=== PATIENT | female | born 1975 | race Caucasian/White ===

== ENCOUNTER 2016-03-04 08:40 | Outpatient (CLI) | payer MEDICAID | END 2016-03-04 08:41 | disposition home or self-care (01) | DX: F42.9 Obsessive-compulsive disorder, unspecified (principal); F84.0 Autistic disorder; F79 Unspecified intellectual disabilities; F41.9 Anxiety disorder, unspecified; R45.1 Restlessness and agitation ==

== ENCOUNTER 2016-09-14 16:22 | Emergency (ER) | payer MEDICAID ==
--- NOTE | 2016-09-14 18:11 | XRAY Preliminary Report ---
Exam: XR Chest 1 View IMPRESSION: 1. Hypoventilatory changes. 2. No unexpected radiopaque foreign bodies. [facility] SITE ID: [id number]
--- NOTE | 2016-09-14 18:17 | XRAY Report ---
EXAM: CHEST RADIOGRAPHY EXAM DATE: 09/14/2016 05:41 PM. CLINICAL HISTORY: 2 teeth missing, ? aspirate. COMPARISON: None. TECHNIQUE: 1 view. FINDINGS: Lungs/Pleura: Decreased volumes with hazy densities at the bases. No consolidation, effusions or pneu mothorax. Mediastinum: Within exam limitations, cardiomediastinal contour is normal. Other: Study limited by body habitus. No radiopaque unexpected foreign bodies are noted. IMPRESSION: 1. Hypoventilatory changes. 2. No unexpected radiopaque foreign bodies. [facility] Referring Provider Line: [phone] SITE ID: [id number]
--- NOTE | 2016-09-14 18:29 | ED Physician Documentation ---
History of Present Illness - Stated complaint Stated Complaint: PULLED OUT TOOTH - Chief complaint Chief Complaint: Heent - Additonal information Additional information: hx from pt 40 f with DD and autism per caregivers was sliding down in her beds with her sheet in her mouth and pulled out two lower teeth and some others seem loose only one tooth could be found no cough or soa no other injury reported LMP August 20 Review of Systems Throat: reports: Dental pain / toothache : reports: LMP (August 20) PD PAST MEDICAL HISTORY - Past Medical History Past Medical History: Yes Endocrine/Autoimmune: HyPOthyroidism GI: GERD Other Past Medical History: autism - Past Surgical History Past Surgical History: Yes HEENT: Myringotomy (tubes) - Present Medications Home Medications: Ambulatory Orders Medication Instructions Recorded Confirmed Alprazolam [Xanax] 1.5 mg PO TID 09/08/12 09/08/12 Desmopressin Acetate 0.2 mg PO TID 09/08/12 09/08/12 Divalproex Sodium [Depakote] 500 mg PO TID 09/08/12 09/08/12 Levothyroxine [Synthroid] 100 mcg PO QDAC 09/08/12 09/08/12 Medroxyprogesterone Acetate 150 mg IM 09/08/12 09/08/12 [Depo-Provera] Oxybutynin [Ditropan] 5 mg PO BID 09/08/12 09/08/12 PARoxetine [Paxil] 40 mg PO DAILY 09/08/12 09/08/12 Quetiapine Fumarate [Seroquel] 200 mg PO QID 09/08/12 09/08/12 Ranitidine HCl [Zantac] 300 mg PO BID 09/08/12 09/08/12 Risperidone [Risperdal] 3 mg PO QDAC 09/08/12 09/08/12 Diphenhydramine HCl [Benadryl] 25 mg PO 04/11/13 04/11/13 Erythromycin Base [Erythromycin] 1 applic OP 5XD 7 Days 04/11/13 Ibuprofen 800 mg PO 04/11/13 04/11/13 Inulin [Fiber Gummies] 1 PO 04/11/13 04/11/13 Penicillin Vk 500 mg PO Q8H 7 Days 09/14/16 - Allergies Allergies/Adverse Reactions: Allergies Allergy/AdvReac Type Severity Reaction Status Date / Time No Known Drug Allergies Allergy Verified 09/25/15 17:42 - Social History Does the pt smoke?: No Smoking Status: Never smoker Does the pt drink ETOH?: No Does the pt have substance abuse?: No - POLST Patient has POLST: No PD ED PE NORMAL - Vitals Vital signs reviewed: Yes - General General: Alert and oriented X 3 - HEENT HEENT: Other (poor dental state, two lower lateral to incisors missing, left with a small stub of tooth left at gumline, old blood in mouth no active bleed, other three lower incisors are not able to be moved but there is some blood along the gum line, no tongue lac or lip lac) Results - Vitals Vitals: Vital Signs - 24 hr 09/14/16 16:28 Temperature 36.8 C Heart Rate 115 H Respiratory 18 Rate Blood Pressure 134/86 H O2 Saturation 98 Oxygen O2 Source Room air - Rads (name of study) CXR Radiology: See rad report (No FB) PD MEDICAL DECISION MAKING - ED course ED course: tooth that was homero has no root, cannot reimplant, suspect pulled out easily 2 /2 decay Departure - Departure Disposition: 01 Home, Self Care Clinical Impression: Avulsed tooth Qualifiers: Encounter type: initial encounter Qualified Code(s): S03.2XXA - Dislocation of tooth, initial encounter Condition: Good Instructions: ED Fx Tooth Prescriptions: Penicillin Vk 500 mg PO Q8H 7 Days Comments: Please see a dentist tomorrow And please get Toma's blood pressure rechecked
[2016-09-14 19:04] VITALS: BP 148/111
== END 2016-09-14 19:03 | disposition home or self-care (01) ==
LOC: ED 16:22
DX: S03.2XXA Dislocation of tooth, initial encounter (principal); X58.XXXA Exposure to other specified factors, initial encounter; F84.0 Autistic disorder
CPT/HCPCS: 71010; 99283

== ENCOUNTER 2016-09-22 11:12 | Outpatient (CLI) | payer MEDICAID ==
[2016-09-22 19:02] LABS: BASOPHILS % (AUTO) 0.8 %; EOSINOPHILS # (AUTO) 0.1 10^3/uL (0.0-0.7); HCT - HEMATOCRIT 42.9 % (37.0-47.0); HGB - HEMOGLOBIN 14.3 g/dL (12.0-16.0); LYMPHOCYTES # (AUTO) 2.1 10^3/uL (1.5-3.5); LYMPHOCYTES % (AUTO) 36.1 %; MEAN CORPUSCULAR HEMOGLOBIN 33.4 pg (27.0-31.0); MEAN CORPUSCULAR HGB CONC 33.5 g/dL (32.0-36.0); MEAN CORPUSCULAR VOLUME 99.7 fL (81.0-99.0); MEAN PLATELET VOLUME 6.9 fL (7.9-10.8); MONOCYTES # (AUTO) 0.4 10^3/uL (0.0-1.0); MONOCYTES % (AUTO) 6.9 %; NEUTROPHILS # (AUTO) 3.2 10^3/uL (1.5-6.6); NEUTROPHILS % (AUTO) 55.2 %; NUCLEATED RED BLOOD CELLS AUTO 0.1 /100WBC; RED CELL DISTRIBUTION WIDTH 14.5 % (12.0-15.0); UNCORRECTED WHITE BLOOD COUNT 5.7 x10^3/uL; WHITE BLOOD COUNT 5.7 x10^3/uL (4.8-10.8)
[2016-09-22 19:13] LABS: ALBUMIN/GLOBULIN RATIO 1.1 (1.0-2.2); BILIRUBIN,TOTAL 0.4 mg/dL (0.2-1.0); CALCIUM 8.9 mg/dL (8.5-10.3); POTASSIUM 4.1 mmol/L (3.5-5.0); TOTAL PROTEIN 7.5 g/dL (6.7-8.2)
[2016-09-22 19:48] LABS: THYROID STIMULATING HORMONE 2.99 uIU/mL (0.34-5.60)
== END 2016-09-22 11:13 | disposition home or self-care (01) ==
LOC: LAB.N 11:12
PROVIDERS: ATTEND Family Medicine
DX: R56.9 Unspecified convulsions (principal); E03.9 Hypothyroidism, unspecified
CPT/HCPCS: 36415; 80053; 84439; 84443; 85025

== ENCOUNTER 2017-02-17 08:55 | Emergency (ER) | payer MEDICAID ==
[2017-02-17] MEDS ORDERED: ACETAMINOPHEN 325 MG TABLET PO STA (09:15)
[2017-02-17] MEDS ORDERED: TETANUS/DIPHTHERIA/PERTUSSIS 0.5 ML SYRINGE IM ONE (09:15)
--- NOTE | 2017-02-17 09:30 | ED Physician Documentation ---
History of Present Illness - Stated complaint Stated Complaint: GLF/FACE INJ - Chief complaint Chief Complaint: Laceration - Additonal information Additional information: hx from caregiver 41 female autistic non verbal per caregiver was walking wrapped in a blanket and fell striking back of head on a piece of electronics no LOC behavior seems baseline no NV moving all ext large lac to posterior scalp Review of Systems Constitutional: denies: Fever Ears: denies: Drainage/discharge Nose: denies: Epistaxis GI: denies: Vomiting Musculoskeletal: denies: Neck pain Neurologic: reports: Head injury. denies: Focal weakness PD PAST MEDICAL HISTORY - Past Medical History Endocrine/Autoimmune: HyPOthyroidism GI: GERD Other Past Medical History: Severe autism, non verbal - Past Surgical History Past Surgical History: Yes HEENT: Myringotomy (tubes) - Present Medications Home Medications: Ambulatory Orders Medication Instructions Recorded Confirmed Alprazolam [Xanax] 1.5 mg PO TID PRN 09/08/12 02/17/17 Oxybutynin [Ditropan] 5 mg PO BID PRN 09/08/12 02/17/17 PARoxetine [Paxil] 60 mg PO DAILY 09/08/12 02/17/17 Quetiapine Fumarate [Seroquel] 200 mg PO QID 09/08/12 02/17/17 risperiDONE [Risperdal] 3 mg PO QDAC 09/08/12 02/17/17 Ibuprofen 800 mg PO PRN 04/11/13 04/11/13 Inulin [Fiber Gummies] 1 tab PO DAILY 04/11/13 02/17/17 - Allergies Allergies/Adverse Reactions: Allergies Allergy/AdvReac Type Severity Reaction Status Date / Time No Known Drug Allergies Allergy Verified 09/25/15 17:42 - Social History Does the pt smoke?: No Smoking Status: Never smoker Does the pt drink ETOH?: No Does the pt have substance abuse?: No - Immunizations Immunizations are current?: Yes - POLST Patient has POLST: No PD ED PE NORMAL - Vitals Vital signs reviewed: Yes (BP not accurate, pt is autistic and agitated) - General General: No: Alert and oriented X 3 (baseline per caregiver - non verbal, autistic, moans) - HEENT HEENT: PERRL. No: Atraumatic (large 5 cm lac posterior scalp, not down to galea , exp[lored to base no FB, no crepitus on palpation) - Neck Neck: No bony TTP (moving freely without apparent pain) - Cardiac Cardiac: RRR - Respiratory Respiratory: No respiratory distress, Clear bilaterally - Derm Derm: Normal color, Other (scalp lac) - Neuro Neuro: Other (moves all ext, awake, baseline per caregiver). No: Alert and oriented X 3 Eye Opening: Spontaneous Motor: Obeys Commands Verbal: Incomprehensible (but that is baseline) GCS Score: 12 Results - Vitals Vitals: Vital Signs - 24 hr 02/17/17 09:03 Temperature 36.1 C L Heart Rate 74 Respiratory 14 Rate Blood Pressure 160/140 H O2 Saturation 100 Oxygen O2 Source Room air Procedures - Laceration (location) scalp Length in cm: 5 Wound type: Curved Neurovascular status: Sensory intact, Motor intact Anesthesia: OTH (none needed) Wound Preparation: Irrigated copiously NS (by denture laboratory technician), Wound explored, To the base. No: FB identified Skin layer closure: [place] (6) Other: Patient tolerated well, No complications, Tetanus booster given Complexity: Simple PD MEDICAL DECISION MAKING - ED course ED course: attempted to get CTH and spine but pt cannot cooperate with same her autism greatly limits exam but per caregiver baseline mental status, was a GLF not from height, her spine is NT and she is freely moving her neck (came in POV, shaking her head wildly when i entered to room to examine her) without apparent pain and without subsequent neuro changes feel risk of conscious sedation not merited in this case rather grigsby to dc with HI precautions and caregivers to monitor d/w caregiver who agrees with this plan Departure - Departure Disposition: 01 Home, Self Care Clinical Impression: Head injury Qualifiers: Encounter type: initial encounter Qualified Code(s): S09.90XA - Unspecified injury of head, initial encounter Occipital scalp laceration Qualifiers: Encounter type: initial encounter Qualified Code(s): S01.01XA - Laceration without foreign body of scalp, initial encounter Fall Qualifiers: Encounter type: initial encounter Qualified Code(s): W19.XXXA - Unspecified fall, initial encounter Condition: Good Instructions: ED Head Injury Closed Sleep Mon, ED Laceration All Follow-Up: Vineet Nur MD [Primary Care Provider] - Comments: Please carefully read all of the head injury precautions. If Toma is worse in any way, please bring her back to the ER for a recheck Otherwise, recommend gently washing the laceration and applying antibiotic ointment once a day, suzanne out in 10 days (her PMD can probably do this for her), return to the ER for signs of infection such as redness, swelling, or pus drainage. Also Toma's tetanus was updated today - please make a note in your records and advise her PMD so the office can update her records as well
[2017-02-17 10:07] VITALS: BP 135/66
== END 2017-02-17 10:05 | disposition home or self-care (01) ==
LOC: ED 08:55
DX: S01.01XA Laceration without foreign body of scalp, initial encounter (principal); W01.198A Fall on same level from slipping, tripping and stumbling with subsequent striking against other object, initial encounter; Y93.01 Activity, walking, marching and hiking; Y92.019 Unspecified place in single-family (private) house as the place of occurrence of the external cause; F84.0 Autistic disorder; K21.9 Gastro-esophageal reflux disease without esophagitis; E03.9 Hypothyroidism, unspecified
CPT/HCPCS: 12032; 99283; A9270

== ENCOUNTER 2017-02-25 18:34 | Outpatient (CLI) | payer MEDICAID | END 2017-02-25 18:35 | disposition critical access hospital (66) | LOC: EMS 18:34 | PROVIDERS: ATTEND Surgery | DX: R46.89 Other symptoms and signs involving appearance and behavior (principal); S01.81XA Laceration without foreign body of other part of head, initial encounter | CPT/HCPCS: A0425; A0429 ==

== ENCOUNTER 2017-02-25 18:42 | Emergency (ER) | payer MEDICAID ==
[2017-02-25] MEDS ORDERED: hydrOXYzine PAMOATE 25 MG CAPSULE PO STA (19:04)
--- NOTE | 2017-02-25 19:07 | ED Physician Documentation ---
History of Present Illness - Stated complaint Stated Complaint: HEAD LAC/AGGRESSIVE - History obtained from History obtained from: EMS, Caregiver - History of Present Illness Timing: Other (41-year-old woman with autism, she is nonverbal and at times aggressive. She is maintained on psychiatric medications for same. I guess today she was more agitated than normal and ran her head into something. She is brought in by ambulance, she is a scrape on the forehead. The caregiver would also like the suzanne from 10 days ago removed.) Review of Systems Unable to obtain: Other (nonverbal) PD PAST MEDICAL HISTORY - Past Medical History Endocrine/Autoimmune: HyPOthyroidism GI: GERD - Past Surgical History Past Surgical History: Yes HEENT: Myringotomy (tubes) - Present Medications Home Medications: Ambulatory Orders Medication Instructions Recorded Confirmed Alprazolam [Xanax] 1.5 mg PO TID PRN 09/08/12 02/17/17 Oxybutynin [Ditropan] 5 mg PO BID PRN 09/08/12 02/17/17 PARoxetine [Paxil] 60 mg PO DAILY 09/08/12 02/17/17 Quetiapine Fumarate [Seroquel] 200 mg PO QID 09/08/12 02/17/17 risperiDONE [Risperdal] 3 mg PO QDAC 09/08/12 02/17/17 Ibuprofen 800 mg PO PRN 04/11/13 04/11/13 Inulin [Fiber Gummies] 1 tab PO DAILY 04/11/13 02/17/17 - Allergies Allergies/Adverse Reactions: Allergies Allergy/AdvReac Type Severity Reaction Status Date / Time No Known Drug Allergies Allergy Verified 09/25/15 17:42 - Social History Does the pt smoke?: No Smoking Status: Never smoker Does the pt drink ETOH?: No Does the pt have substance abuse?: No - Immunizations Immunizations are current?: Yes - POLST Patient has POLST: No PD ED PE NORMAL - Vitals Vital signs reviewed: Yes - General General: Other (She is alert and cooperative, she makes eye contact and follows simple commands. She is using sign language to communicate with a caregiver.) - HEENT HEENT: EOMI, Other (She has a dense right cataract, there is a little scrape on the forehead without underlying tenderness. There is a healing laceration to the occiput, suzanne were removed during examination.) - Neck Neck: Supple, no meningeal sign, No bony TTP - Cardiac Cardiac: RRR, No murmur - Respiratory Respiratory: No respiratory distress, Clear bilaterally - Abdomen Abdomen: Non tender - Neuro Eye Opening: Spontaneous Motor: Obeys Commands Verbal: Confused GCS Score: 14 Results - Vitals Vitals: Oxygen O2 Source Room air PD MEDICAL DECISION MAKING - ED course ED course: 41-year-old woman with autism has a report of increased agitation and a head injury today. The head injury is minor, just a scrape on the forehead. Per the caregiver she is back at her baseline now and she is given hydroxyzine which is her as needed when she is agitated. She is advised to call the prescriber on Monday for evaluation and potential adjustment of her psychiatric medications. Departure - Departure Disposition: 01 Home, Self Care Clinical Impression: Autism Forehead abrasion Qualifiers: Encounter type: initial encounter Qualified Code(s): S00.81XA - Abrasion of other part of head, initial encounter Condition: Good Record reviewed to determine appropriate education?: Yes Comments: She received an oral dose of hydroxyzine, 25 mg in the emergency department tonight. The wounds about her head can be washed simply with soap and water, no other specific care is necessary. Whomever is prescribing her psychiatric medication should be contacted on Monday for evaluation and potential adjustment. Return anytime if worse.
== END 2017-02-25 19:24 | disposition home or self-care (01) ==
LOC: EDBD → EDUNIT# → ED 18:42
DX: F84.0 Autistic disorder (principal); S00.81XA Abrasion of other part of head, initial encounter; W22.09XA Striking against other stationary object, initial encounter; E03.9 Hypothyroidism, unspecified
CPT/HCPCS: 99283; A9270

== ENCOUNTER 2017-03-26 16:57 | Outpatient (CLI) | payer MEDICARE, MEDICAID | END 2017-03-26 16:58 | disposition critical access hospital (66) | LOC: EMS 16:57 | PROVIDERS: ATTEND Surgery | DX: R46.89 Other symptoms and signs involving appearance and behavior (principal) | CPT/HCPCS: A0425; A0429 ==

== ENCOUNTER 2017-03-26 17:06 | Emergency (ER) | payer MEDICARE, MEDICAID ==
[2017-03-26] MEDS ORDERED: QUEtiapine 100 MG TABLET PO STA ×2 (17:14→19:01)
--- NOTE | 2017-03-26 17:16 | ED Physician Documentation ---
History of Present Illness - Stated complaint Stated Complaint: agressive behavior - History obtained from History obtained from: EMS - History of Present Illness Timing: Other (41-year-old woman comes from an adult family home. She has a developmental delay and negative she has been more aggressive than normal lately. Today they were out shopping and she had a fit and through self to the ground and scraped her forehead. No other injuries.) Review of Systems Unable to obtain: Other (dev delay) PD PAST MEDICAL HISTORY - Past Medical History Endocrine/Autoimmune: HyPOthyroidism GI: GERD - Past Surgical History Past Surgical History: Yes HEENT: Myringotomy (tubes) - Present Medications Home Medications: Ambulatory Orders Medication Instructions Recorded Confirmed Alprazolam [Xanax] 1.5 mg PO TID PRN 09/08/12 02/17/17 Oxybutynin [Ditropan] 5 mg PO BID PRN 09/08/12 02/17/17 PARoxetine [Paxil] 40 mg PO DAILY 09/08/12 02/17/17 Quetiapine Fumarate [Seroquel] 200 mg PO QID 09/08/12 02/17/17 risperiDONE [Risperdal] 2 mg PO QDAC 09/08/12 02/17/17 Ibuprofen 800 mg PO PRN 04/11/13 04/11/13 Inulin [Fiber Gummies] 1 tab PO DAILY 04/11/13 02/17/17 Divalproex Sodium 03/26/17 Furosemide 20 mg PO 03/26/17 Levothyroxine Sodium [Synthroid] 03/26/17 Quetiapine Fumarate [Seroquel] 50 mg PO Q4H PRN #30 tablet 03/26/17 Quetiapine Fumarate [Seroquel] 400 mg PO BID #60 tablet 03/26/17 diphenhydrAMINE [Benadryl] 25 mg PO Q4-6H PRN #30 capsule 03/26/17 - Allergies Allergies/Adverse Reactions: Allergies Allergy/AdvReac Type Severity Reaction Status Date / Time No Known Drug Allergies Allergy Verified 09/25/15 17:42 - Social History Does the pt smoke?: No Smoking Status: Never smoker Does the pt drink ETOH?: No Does the pt have substance abuse?: No - Immunizations Immunizations are current?: Yes - POLST Patient has POLST: No PD ED PE NORMAL - Vitals Vital signs reviewed: Yes - General General: Other (She is alert and cooperative, follows simple commands. She gestures a lot with her hands.) - HEENT HEENT: Other (She is an abrasion over the forehead, the right eye lens is opacified which is similar to prior.) - Neck Neck: Supple, no meningeal sign, No bony TTP - Extremities Extremities: No deformity, No tenderness to palpate, Normal ROM s pain, No edema , No calf tenderness / cord - Neuro Neuro: No motor deficit, No sensory deficit, Other (Mostly grunts and gestures at things) Eye Opening: Spontaneous Motor: Obeys Commands Verbal: Incomprehensible GCS Score: 12 Results - Vitals Vitals: Vital Signs - 24 hr 03/26/17 17:08 Temperature 36.1 C L Heart Rate 67 Respiratory 18 Rate Blood Pressure 120/70 O2 Saturation 95 Oxygen O2 Source Room air - Labs Labs: Laboratory Tests 03/26/17 03/26/17 03/26/17 17:56 17:56 17:56 WBC 6.1 RBC 3.98 L Hgb 13.1 Hct 38.5 MCV 96.7 MCH 33.0 H MCHC 34.1 RDW 14.1 Plt Count 160 MPV 7.4 L Neut # 3.6 Lymph # 1.9 Gila # 0.5 Eos # 0.0 Baso # 0.0 Absolute Nucleated RBC 0.00 Nucleated RBC % 0.0 Sodium 138 Potassium 3.6 Chloride 103 Carbon Dioxide 24 Anion Gap 11.0 BUN 22 H Creatinine 0.9 Estimated GFR (MDRD) 69 L Glucose 91 Calcium 8.9 Total Bilirubin 0.6 AST 23 ALT 27 Alkaline Phosphatase 91 Total Protein 7.3 Albumin 3.6 Globulin 3.7 Albumin/Globulin Ratio 1.0 Lipase 26 TSH 1.81 PD MEDICAL DECISION MAKING - ED course ED course: Autism and developmental delay presents with increased agitation without clear cause. She was administered her usual dose of Seroquel and Ativan here without much change. I spoke with Dr. Luis A Lennon a psychiatrist in the [facility] who recommended Seroquel, 400 mg now and then tomorrow increasing her dose to 400 mg twice a day with a 50 mill grams dose as needed for agitation. The caregiver also felt the Benadryl has worked well for her in the past and this was given as well. Departure - Departure Disposition: 01 Home, Self Care Clinical Impression: Autism, Agitation Condition: Good Record reviewed to determine appropriate education?: Yes Prescriptions: diphenhydrAMINE [Benadryl] 25 mg PO Q4-6H PRN #30 capsule PRN Reason: Agitation Quetiapine Fumarate [Seroquel] 50 mg PO Q4H PRN #30 tablet PRN Reason: Agitation Quetiapine Fumarate [Seroquel] 400 mg PO BID #60 tablet Comments: Dr. Lennon at the [facility] recommends the following medication changes: Increasing her Seroquel to 400 mg twice a day, and then an as needed dose for agitation and 50 mg each time. You can also use Benadryl as needed for agitation, both prescriptions are attached. She should follow-up with nurse practitioner Chauncey at the [facility] as soon as possible. Return if worse.
[2017-03-26] MEDS ORDERED: LORazepam 0.5 MG TABLET PO STA (17:27)
[2017-03-26 17:33] VITALS: BP 120/70
[2017-03-26 18:09] LABS: BASOPHILS % (AUTO) 0.5 %; EOSINOPHILS % (AUTO) 0.6 %; HGB - HEMOGLOBIN 13.1 g/dL (12.0-16.0); LYMPHOCYTES # (AUTO) 1.9 10^3/uL (1.5-3.5); LYMPHOCYTES % (AUTO) 31.5 %; MEAN CORPUSCULAR HGB CONC 34.1 g/dL (32.0-36.0); MEAN CORPUSCULAR VOLUME 96.7 fL (81.0-99.0); MEAN PLATELET VOLUME 7.4 fL (7.9-10.8); MONOCYTES # (AUTO) 0.5 10^3/uL (0.0-1.0); NEUTROPHILS # (AUTO) 3.6 10^3/uL (1.5-6.6); NEUTROPHILS % (AUTO) 59.4 %; PLT - PLATELET COUNT 160 10^3/uL (130-450); RED BLOOD COUNT 3.98 10^6/uL (4.20-5.40); RED CELL DISTRIBUTION WIDTH 14.1 % (12.0-15.0); WHITE BLOOD COUNT 6.1 x10^3/uL (4.8-10.8)
[2017-03-26 18:18] LABS: ALBUMIN 3.6 g/dL (3.2-5.5); BILIRUBIN,TOTAL 0.6 mg/dL (0.2-1.0); CALCIUM 8.9 mg/dL (8.5-10.3); CREATININE 0.9 mg/dL (0.4-1.0); TOTAL PROTEIN 7.3 g/dL (6.7-8.2)
[2017-03-26] MEDS ORDERED: diphenhydrAMINE 25 MG CAPSULE PO STA (19:04)
== END 2017-03-26 19:17 | disposition home or self-care (01) ==
LOC: ED 17:06
DX: F84.0 Autistic disorder (principal); R45.1 Restlessness and agitation; S00.81XA Abrasion of other part of head, initial encounter; W22.09XA Striking against other stationary object, initial encounter; E03.9 Hypothyroidism, unspecified
CPT/HCPCS: 36415; 80053; 83690; 84443; 85025; 99283; A9270

== ENCOUNTER 2017-04-07 10:29 | Outpatient (CLI) | payer MEDICARE, MEDICAID | END 2017-04-07 10:30 | disposition critical access hospital (66) | LOC: EMS 10:29 | PROVIDERS: ATTEND Surgery | DX: S01.81XA Laceration without foreign body of other part of head, initial encounter (principal); W22.8XXA Striking against or struck by other objects, initial encounter; X83.8XXA Intentional self-harm by other specified means, initial encounter; Y92.039 Unspecified place in apartment as the place of occurrence of the external cause | CPT/HCPCS: A0425; A0429 ==

== ENCOUNTER 2017-04-07 10:40 | Emergency (ER) | payer MEDICARE, MEDICAID ==
[2017-04-07] MEDS ORDERED: OLANZapine 10 MG VIAL IM STA ×2 (11:42→12:38)
--- NOTE | 2017-04-07 11:46 | ED Physician Documentation ---
PD HPI HEAD INJURY - Stated complaint Stated Complaint: HEAD WOUND - Chief complaint Chief Complaint: Trauma Hd/Nk - History obtained from History obtained from: Family (Mother), EMS, Caregiver - History of Present Illness Mechanism of head injury: Blow Where head injury occurred: Home Timing - onset: Today Location of injury: Front Associated symptoms: No: LOC - Additional information Additional information: The patient is an autistic female who arrives via ambulance with frontal head injury. She is nonverbal and not able to provide history, but history is obtained from her caregiver and her mother. This morning the patient was banging her head on the floor, and put her jeans in her mouth and pulled, and the caregiver noticed blood from her mouth. There was no loss of consciousness. Vaccinations are up-to-date. Mother states that the head- banging has been increasing in frequency recently. Review of Systems Unable to obtain: Other (Nonverbal due to autism.) Constitutional: denies: Fever Respiratory: denies: Cough GI: denies: Vomiting, Diarrhea Neurologic: reports: Head injury. denies: LOC PD PAST MEDICAL HISTORY - Past Medical History Cardiovascular: None Respiratory: None Neuro: Other (Nonverbal autism) Endocrine/Autoimmune: HyPOthyroidism GI: GERD - Past Surgical History Past Surgical History: Yes HEENT: Myringotomy (tubes) - Present Medications Home Medications: Ambulatory Orders Medication Instructions Recorded Confirmed Alprazolam [Xanax] 1.5 mg PO TID PRN 09/08/12 04/07/17 Oxybutynin [Ditropan] 5 mg PO BID PRN 09/08/12 04/07/17 PARoxetine [Paxil] 40 mg PO DAILY 09/08/12 04/07/17 risperiDONE [Risperdal] 3 mg PO QDAC 09/08/12 04/07/17 Ibuprofen 800 mg PO TID 04/11/13 04/07/17 Inulin [Fiber Gummies] 1 tab PO DAILY 04/11/13 04/07/17 Divalproex Sodium 1 tab PO TID 03/26/17 04/07/17 Furosemide 20 mg PO DAILY PRN 03/26/17 04/07/17 Levothyroxine Sodium [Synthroid] 112 mcg PO DAILY 03/26/17 04/07/17 diphenhydrAMINE [Benadryl] 25 mg PO Q4-6H PRN #30 capsule 03/26/17 04/07/17 Cetirizine HCl 1 tab PO DAILY 04/07/17 04/07/17 Quetiapine Fumarate [Seroquel] 300 mg PO BID 04/07/17 04/07/17 raNITIdine [Zantac] 2 tab PO DAILY 04/07/17 04/07/17 - Allergies Allergies/Adverse Reactions: Allergies Allergy/AdvReac Type Severity Reaction Status Date / Time No Known Drug Allergies Allergy Verified 09/25/15 17:42 - Living Situation Living Situation: reports: With caregiver(s) Living Arrangement: reports: senior care - Social History Does the pt smoke?: No Smoking Status: Never smoker Does the pt drink ETOH?: No Does the pt have substance abuse?: No - Immunizations Immunizations are current?: Yes - POLST Patient has POLST: No PD ED PE NORMAL - Vitals Vital signs reviewed: Yes (hypertensive) - General General: Well developed/nourished, Other (Alert, repeated yelling vocalizations , without words.) - HEENT HEENT: PERRL, EOMI, Pharynx benign, Other (There is a 3 cm diameter area of contusion/abrasion in the mid forehead. There is a superficial abrasion, without laceration. No bony step-off is palpated. Examination of her teeth reveals a decayed left lower lateral incisor, fractured at the base. Teeth are otherwise intact.) - Neck Neck: No bony TTP - Cardiac Cardiac: RRR - Respiratory Respiratory: No respiratory distress, Clear bilaterally - Abdomen Abdomen: Soft, Non tender - Back Back: No spinal TTP - Derm Derm: No rash - Extremities Extremities: No tenderness to palpate, No edema - Neuro Neuro: No motor deficit Eye Opening: Spontaneous Motor: Obeys Commands Verbal: Confused GCS Score: 14 Results - Vitals Vitals: Oxygen O2 Source Room air - Rads (name of study) Head CT Radiology: Prelim report reviewed, EMP read contemporaneously, See rad report ( Normal head CT.) PD MEDICAL DECISION MAKING - ED course Complexity details: reviewed results, re-evaluated patient, considered differential, d/w patient, d/w family ED course: The patient's presentation is significant for forehead contusion and abrasion secondary to banging her head on the floor. Given her inability to communicate verbally it was felt clinically indicated that a head CT be performed to evaluate for the possibility of intracranial injury. Because of the patient's constant movement and vocal outbursts, sedation was required for the imaging study. Lorazepam 2 mg is administered IM. This had little impact on the patient's activity level. Zyprexa 5 mg was administered IM again with little impact. Subsequently, ketamine 300 mg was administered IM with good effect. Head CT was obtained, and it reveals no radiographic intracranial abnormality. Treatment in the emergency department included application of antibiotic ointment to the forehead abrasions. I discussed with the patient's caregiver and her mother the results of the CT scan, appropriate wound care, outpatient follow-up, as well as potentially worrisome signs or symptoms that should prompt reevaluation in the emergency department. Departure - Departure Disposition: 01 Home, Self Care Clinical Impression: Autism Forehead contusion Qualifiers: Encounter type: initial encounter Qualified Code(s): S00.83XA - Contusion of other part of head, initial encounter Forehead abrasion Qualifiers: Encounter type: initial encounter Qualified Code(s): S00.81XA - Abrasion of other part of head, initial encounter Condition: Stable Instructions: ED Wound Care Follow-Up: Vineet Nur MD [Primary Care Provider] - Comments: Continue medication as currently prescribed. Apply antibiotic ointment to the forehead wounds twice daily for the next 4 days. Follow up in the autism clinic as planned. Return to the emergency department if increasing headache, any sign of infection , or otherwise worsening symptoms. Discharge Date/Time: 04/07/17 15:33
[2017-04-07] MEDS ORDERED: LORazepam 2 MG/ML VIAL IM STA (12:13)
[2017-04-07] MEDS ORDERED: WATER FOR INJECTION,STERILE 10 ML ONE (12:47)
[2017-04-07] MEDS ORDERED: OLANZapine 10 MG VIAL IM ONE (12:47)
[2017-04-07] MEDS ORDERED: KETAMINE 500 MG/10 ML VIAL IM STA (13:21)
[2017-04-07 14:38] VITALS: BP 128/90
--- NOTE | 2017-04-07 14:41 | CT Preliminary Report ---
Exam: CT HEAD W/O IMPRESSION: Normal head CT. [facility] SITE ID: [id number]
--- NOTE | 2017-04-07 14:54 | CT Report ---
EXAM: CT HEAD EXAM DATE: 04/07/2017 02:13 PM. CLINICAL HISTORY: Autism. Hitting head against floor with forehead abrasion, laceration along superio r aspect of the head as well. COMPARISON: None. TECHNIQUE: Multiaxial CT images were obtained from the foramen magnum to the vertex. Reformats: Coron al. IV contrast: None. In accordance with CT protocol optimization, one or more of the following dose reduction techniques w ere utilized for this exam: automated exposure control, adjustment of mA and/or KV based on patient s ize, or use of iterative reconstructive technique. FINDINGS: Parenchyma: No intraparenchymal hemorrhage. No evidence of mass, midline shift, or CT findings of inf arction. Silva-white differentiation is distinct. Extraaxial Spaces: Normal for age. No subdural or epidural collections identified. Ventricles: Normal in size and position. Sinuses and Orbits: Imaged paranasal sinuses, orbits, and mastoids show no significant abnormality. Bones: No evidence of fracture or calvarial defect. Other: Mild forehead edema. No hematoma. IMPRESSION: Normal head CT. [facility] Referring Provider Line: [phone] SITE ID: [id number]
[2017-04-07] MEDS ORDERED: BACITRACIN OINT TOP STA (15:17)
== END 2017-04-07 15:33 | disposition home or self-care (01) ==
LOC: EDUNIT# → ED 10:40
DX: S00.83XA Contusion of other part of head, initial encounter (principal); W22.8XXA Striking against or struck by other objects, initial encounter; Y92.009 Unspecified place in unspecified non-institutional (private) residence as the place of occurrence of the external cause; S00.81XA Abrasion of other part of head, initial encounter; F84.0 Autistic disorder
CPT/HCPCS: 70450; 96372; 99283; 99284; A9270; J2060

== ENCOUNTER 2017-05-19 08:34 | Outpatient (CLI) | payer MEDICARE, MEDICAID ==
[2017-05-19 12:52] LABS: BASOPHILS % (AUTO) 0.8 %; EOSINOPHILS % (AUTO) 1.1 %; HGB - HEMOGLOBIN 14.4 g/dL (12.0-16.0); LYMPHOCYTES # (AUTO) 1.5 10^3/uL (1.5-3.5); LYMPHOCYTES % (AUTO) 41.1 %; MEAN CORPUSCULAR HEMOGLOBIN 32.7 pg (27.0-31.0); MEAN CORPUSCULAR HGB CONC 33.1 g/dL (32.0-36.0); MEAN CORPUSCULAR VOLUME 98.7 fL (81.0-99.0); MEAN PLATELET VOLUME 7.4 fL (7.9-10.8); MONOCYTES # (AUTO) 0.3 10^3/uL (0.0-1.0); MONOCYTES % (AUTO) 7.8 %; NEUTROPHILS # (AUTO) 1.8 10^3/uL (1.5-6.6); NEUTROPHILS % (AUTO) 49.2 %; PLT - PLATELET COUNT 164 10^3/uL (130-450); RED CELL DISTRIBUTION WIDTH 14.9 % (12.0-15.0); WHITE BLOOD COUNT 3.7 x10^3/uL (4.8-10.8)
[2017-05-19 13:14] LABS: HB2 TOTAL 15.4 g/dL; HEMOGLOBIN A1C 0.46 g/dL; HEMOGLOBIN A1C % 4.9 % (4.6-6.2)
[2017-05-19 13:17] LABS: ALBUMIN 3.6 g/dL (3.2-5.5); ALBUMIN/GLOBULIN RATIO 1.1 (1.0-2.2); ALKALINE PHOSPHATASE 69 IU/L (42-121); ALT ALANINE AMINOTRANSFERASE 27 IU/L (10-60); AST ASPARTATE AMINOTRANSFERASE 20 IU/L (10-42); BILIRUBIN,TOTAL 0.6 mg/dL (0.2-1.0); BUN - BLOOD UREA NITROGEN 21 mg/dL (6-20); CALCIUM 8.8 mg/dL (8.5-10.3); CARBON DIOXIDE - CO2 25 mmol/L (21-32); CHLORIDE 104 mmol/L (101-111); CHOL/HDL RATIO 3.7 (<4.4); CHOLESTEROL 187 mg/dL; CREATININE 0.8 mg/dL (0.4-1.0); GFR - MDRD 79 (>89); GLUCOSE 94 mg/dL (70-100); HDL CHOLESTEROL 51 mg/dL; LDL CHOLESTEROL,CALCULATED 115 mg/dL; LDL/HDL RATIO 2.3 (<4.4); SODIUM 135 mmol/L (135-145); VALPROIC ACID (DEPAKOTE) 62.6 ug/mL; VLDL CHOLESTEROL 21 mg/dL
[2017-05-19 13:20] LABS: THYROID STIMULATING HORMONE 2.57 uIU/mL (0.34-5.60)
[2017-05-19 13:22] LABS: FREE T4 (FREE THYROXINE) 0.74 ng/dL (0.58-1.64)
== END 2017-05-19 08:35 | disposition home or self-care (01) ==
LOC: LAB.N 08:34
PROVIDERS: ATTEND Family Medicine
DX: R56.9 Unspecified convulsions (principal); E11.9 Type 2 diabetes mellitus without complications; E66.01 Morbid (severe) obesity due to excess calories; E03.9 Hypothyroidism, unspecified; F84.0 Autistic disorder
CPT/HCPCS: 36415; 80053; 80061; 80164; 83036; 83721; 84439; 84443; 85025

== ENCOUNTER 2017-06-12 12:22 | Outpatient (CLI) | payer MEDICARE, MEDICAID | END 2017-06-12 12:23 | disposition critical access hospital (66) | LOC: EMS 12:22 | PROVIDERS: ATTEND Surgery | DX: F91.8 Other conduct disorders (principal) | CPT/HCPCS: A0425; A0429 ==

== ENCOUNTER 2017-06-12 12:33 | Emergency (ER) | payer MEDICARE, MEDICAID ==
[2017-06-12 12:53] VITALS: BP 92/73
--- NOTE | 2017-06-12 13:29 | ED Physician Documentation ---
History of Present Illness - Stated complaint Stated Complaint: AGITATED - Chief complaint Chief Complaint: General - History obtained from History obtained from: Caregiver - Additonal information Additional information: Nonverbal 41-year-old autistic female has had increased aggressive behavior today. She has had some things out of her routine and this is suspected to be a cause for this she is brought here today for evaluation of other causes. She has had some problem with the tooth in the lower jaw and has not been into see the dentist for this yet. Review of Systems Constitutional: denies: Fever Eyes: denies: Decreased vision Ears: denies: Ear pain Nose: reports: Congestion Throat: reports: Dental pain / toothache Respiratory: denies: Cough GI: denies: Vomiting Skin: denies: Rash Neurologic: denies: Generalized weakness, Focal weakness, Numbness PD PAST MEDICAL HISTORY - Past Medical History Cardiovascular: None Respiratory: None Neuro: Other Endocrine/Autoimmune: HyPOthyroidism GI: GERD - Past Surgical History Past Surgical History: Yes HEENT: Myringotomy (tubes) - Present Medications Home Medications: Ambulatory Orders Medication Instructions Recorded Confirmed Alprazolam [Xanax] 1.5 mg PO TID PRN 09/08/12 04/07/17 Oxybutynin [Ditropan] 5 mg PO BID PRN 09/08/12 04/07/17 PARoxetine [Paxil] 40 mg PO DAILY 09/08/12 04/07/17 risperiDONE [Risperdal] 3 mg PO QDAC 09/08/12 04/07/17 Ibuprofen 800 mg PO TID 04/11/13 04/07/17 Inulin [Fiber Gummies] 1 tab PO DAILY 04/11/13 04/07/17 Divalproex Sodium 1 tab PO TID 03/26/17 04/07/17 Furosemide 20 mg PO DAILY PRN 03/26/17 04/07/17 Levothyroxine Sodium [Synthroid] 112 mcg PO DAILY 03/26/17 04/07/17 diphenhydrAMINE [Benadryl] 25 mg PO Q4-6H PRN #30 capsule 03/26/17 04/07/17 Cetirizine HCl 1 tab PO DAILY 04/07/17 04/07/17 Quetiapine Fumarate [Seroquel] 300 mg PO BID 04/07/17 04/07/17 raNITIdine [Zantac] 2 tab PO DAILY 04/07/17 04/07/17 Amoxicillin 875 mg PO BID #20 tablet 06/12/17 - Allergies Allergies/Adverse Reactions: Allergies Allergy/AdvReac Type Severity Reaction Status Date / Time No Known Drug Allergies Allergy Verified 06/12/17 12:53 - Social History Does the pt smoke?: No Smoking Status: Never smoker Does the pt drink ETOH?: No Does the pt have substance abuse?: No - Immunizations Immunizations are current?: Yes - POLST Patient has POLST: No PD ED PE NORMAL - Vitals Vital signs reviewed: Yes (Tachycardic) - General General: No acute distress, Well developed/nourished - HEENT HEENT: Atraumatic, PERRL, EOMI, Other (The left TM is inflammed with indistinct landmarks the right is clear there is erythema and tenderness to #22 which is broken off at the gum line. ) - Neck Neck: Supple, no meningeal sign, No bony TTP - Cardiac Cardiac: Other (tachy to 110) - Respiratory Respiratory: No respiratory distress, Clear bilaterally - Back Back: No CVA TTP, No spinal TTP - Derm Derm: Normal color, Warm and dry, No rash - Extremities Extremities: No deformity - Neuro Neuro: No motor deficit, No sensory deficit PD ED PE EXPANDED - HEENT HEENT Visual: 1 - swelling, tenderness Results - Vitals Vitals: Vital Signs - 24 hr 06/12/17 12:48 Temperature 36.5 C Heart Rate 122 H Respiratory 22 Rate Blood Pressure 92/73 O2 Saturation 99 Oxygen O2 Source Room air PD MEDICAL DECISION MAKING - ED course Complexity details: reviewed old records, considered differential, d/w family ED course: 41-year-old female with increased aggressive behavior appears to have otitis on exam as well as a dental issue. We will give her some dexamethasone here in the emergency department and some Tylenol and we will place her on some amoxicillin. Departure - Departure Disposition: 01 Home, Self Care Clinical Impression: Agitation, Dental abscess Forehead contusion Qualifiers: Encounter type: initial encounter Qualified Code(s): S00.83XA - Contusion of other part of head, initial encounter Otitis media Qualifiers: Otitis media type: suppurative Chronicity: acute Laterality: left Recurrence: not specified as recurrent Spontaneous tympanic membrane rupture: without spontaneous rupture Qualified Code(s): H66.002 - Acute suppurative otitis media without spontaneous rupture of ear drum, left ear Instructions: ED Abscess Dental, ED Otitis Media Acute Adult Follow-Up: Vineet Nur MD [Credentialed Staff Provider] - Prescriptions: Amoxicillin 875 mg PO BID #20 tablet
[2017-06-12] MEDS ORDERED: DEXAMETHASONE 10 MG/ML VIAL PO STA (13:31)
[2017-06-12] MEDS ORDERED: ACETAMINOPHEN 325 MG TABLET PO STA (13:31)
== END 2017-06-12 13:46 | disposition home or self-care (01) ==
LOC: EDUNIT# → ED 12:33
DX: S00.83XA Contusion of other part of head, initial encounter (principal); X58.XXXA Exposure to other specified factors, initial encounter; R45.1 Restlessness and agitation; H66.002 Acute suppurative otitis media without spontaneous rupture of ear drum, left ear; F84.0 Autistic disorder; E03.9 Hypothyroidism, unspecified; K21.9 Gastro-esophageal reflux disease without esophagitis
CPT/HCPCS: 99283; A9270

== ENCOUNTER 2017-11-28 08:00 | Outpatient (CLI) | payer MEDICARE, MEDICAID ==
[2017-11-28 19:30] LABS: ALBUMIN 3.6 g/dL (3.2-5.5); ALBUMIN/GLOBULIN RATIO 1.2 (1.0-2.2); BILIRUBIN,TOTAL 0.9 mg/dL (0.2-1.0); CALCIUM 8.9 mg/dL (8.5-10.3); CREATININE 0.8 mg/dL (0.4-1.0); TOTAL PROTEIN 6.7 g/dL (6.7-8.2)
[2017-11-28 19:38] LABS: THYROID STIMULATING HORMONE 2.03 uIU/mL (0.34-5.60)
[2017-11-28 19:42] LABS: FREE T4 (FREE THYROXINE) 0.92 ng/dL (0.58-1.64)
== END 2017-11-28 08:01 | disposition home or self-care (01) ==
LOC: LAB.N 08:00
PROVIDERS: ATTEND Family Medicine
DX: Z51.81 Encounter for therapeutic drug level monitoring (principal); E03.9 Hypothyroidism, unspecified; E66.01 Morbid (severe) obesity due to excess calories; F84.0 Autistic disorder
CPT/HCPCS: 36415; 80053; 84439; 84443

== ENCOUNTER 2018-05-15 09:09 | Emergency (ER) | payer MEDICARE, MEDICAID ==
[2018-05-15 09:32] VITALS: BP 107/73
[2018-05-15] MEDS ORDERED: BUFFERED LIDOCAINE 10 ML SYRINGE SUBQ STA (10:40)
--- NOTE | 2018-05-15 10:43 | ED Physician Documentation ---
PD HPI HEAD INJURY - Stated complaint Stated Complaint: GLF/HEAD INJURY - Chief complaint Chief Complaint: Laceration - History obtained from History obtained from: Caregiver - History of Present Illness Mechanism of head injury: Fell Where head injury occurred: Home Timing - onset: Today Location of injury: Back Quality of pain: Pain Associated symptoms: No: LOC, AMS, Amnesia, Nausea / vomiting, Neck pain, Paresthesias, Seizures, Ear drainage, Nasal drainage Symptoms improve with: Rest Symptoms worsen with: Palpation, Movement Similar symptoms before: Has not had sx before Recently seen: Not recently seen - Additional information Additional information: 42-year-old autistic female was walking in her home today when she had a wi tnessed fall she tripped over her feet and fell against a chair lacerating the top of her head. She did not have any loss of consciousness she has not had any vomiting. She is nonverbal and all history is taken from the caregiver. The caregiver notes the patient has not been ill recently with any fever chills sweats cough or change in her bowel or bladder. Review of Systems Constitutional: denies: Fever, Chills, Myalgias Eyes: denies: Decreased vision Ears: denies: Ear pain Nose: denies: Congestion Throat: denies: Sore throat Cardiac: denies: Chest pain / pressure, Palpitations Respiratory: denies: Dyspnea, Cough GI: denies: Abdominal Pain, Nausea, Vomiting : denies: Dysuria PD PAST MEDICAL HISTORY - Past Medical History Past Medical History: Yes Cardiovascular: None Respiratory: None Neuro: Seizure disorder, Other Endocrine/Autoimmune: HyPOthyroidism GI: GERD DIGITAL COMPUTER SYSTEMS ANALYST: None : None HEENT: None Psych: Other Musculoskeletal: None Derm: None Other Past Medical History: Autism and developmentally delayed - Past Surgical History Past Surgical History: Yes HEENT: Myringotomy (tubes) - Present Medications Home Medications: Ambulatory Orders Medication Instructions Recorded Confirmed Alprazolam [Xanax] 0.5 mg PO TID PRN 09/08/12 04/07/17 PARoxetine [Paxil] 40 mg PO DAILY 09/08/12 04/07/17 risperiDONE [Risperdal] 3 mg PO QDAC 09/08/12 04/07/17 Divalproex Sodium 1 tab PO TID 03/26/17 04/07/17 Furosemide 20 mg PO DAILY PRN 03/26/17 04/07/17 Levothyroxine Sodium [Synthroid] 112 mcg PO DAILY 03/26/17 04/07/17 Cetirizine HCl 1 tab PO DAILY 04/07/17 04/07/17 Quetiapine Fumarate [Seroquel] 300 mg PO BID 04/07/17 04/07/17 raNITIdine [Zantac] 2 tab PO DAILY 04/07/17 04/07/17 - Allergies Allergies/Adverse Reactions: Allergies Allergy/AdvReac Type Severity Reaction Status Date / Time bee venom protein (honey bee) Allergy Anaphylaxis Verified 05/15/18 10:12 - Social History Does the pt smoke?: No Smoking Status: Never smoker Does the pt drink ETOH?: No Does the pt have substance abuse?: No - Immunizations Immunizations are current?: Yes - POLST Patient has POLST: No PD ED PE NORMAL - Vitals Vital signs reviewed: Yes (normal ) - General General: No acute distress, Well developed/nourished - HEENT HEENT: PERRL, EOMI, Other (The right TM is without inflamation and the left is obscurred by cerumen. There is a 4cm laceration to the scalp over the left parietal occipital area. ) - Neck Neck: Supple, no meningeal sign, No bony TTP - Respiratory Respiratory: No respiratory distress - Derm Derm: Normal color, Warm and dry, No rash - Extremities Extremities: No deformity, No edema - Neuro Neuro: No motor deficit, No sensory deficit Eye Opening: Spontaneous Motor: Obeys Commands Verbal: Incomprehensible GCS Score: 12 - Psych Psych: Normal mood, Normal affect Results - Vitals Vitals: Vital Signs - 24 hr 05/15/18 09:30 Temperature 36.8 C Heart Rate 86 Respiratory 16 Rate Blood Pressure 107/73 O2 Saturation 99 Oxygen O2 Source Room air Procedures - Laceration (location) scalp Length in cm: 4 Wound type: Linear, Clean Neurovascular status: Sensory intact, Motor intact, Vascular intact Anesthesia: Lidocaine 1%, With bicarb Wound Preparation: Hibiclens, Irrigated copiously NS, Wound explored, To the base Skin layer closure: [place] Other: Patient tolerated well, No complications, Neurovascular intact, Tetanus UTD Complexity: Simple PD MEDICAL DECISION MAKING - ED course Complexity details: reviewed old records, considered differential, d/w family ED course: 42-year-old female nonverbal autistic has a laceration to her scalp that does not involve deeper structures she did not have loss of consciousness and her wound is closed with suzanne. The patient tolerates this well. Departure - Departure Disposition: 01 Home, Self Care Clinical Impression: Scalp laceration Qualifiers: Encounter type: initial encounter Qualified Code(s): S01.01XA - Laceration without foreign body of scalp, initial encounter Condition: Stable Instructions: ED Laceration Scalp Stitch Or Stap Follow-Up: Susie Rosario DNP [Primary Care Provider] - Comments: You will need to have your suzanne removed in 10 days
== END 2018-05-15 11:19 | disposition home or self-care (01) ==
LOC: ED 09:09
DX: S01.01XA Laceration without foreign body of scalp, initial encounter (principal); W01.190A Fall on same level from slipping, tripping and stumbling with subsequent striking against furniture, initial encounter; Y93.01 Activity, walking, marching and hiking; Y92.009 Unspecified place in unspecified non-institutional (private) residence as the place of occurrence of the external cause; F84.0 Autistic disorder; H61.22 Impacted cerumen, left ear
CPT/HCPCS: 12002; 99283

== ENCOUNTER 2018-08-01 14:28 | Emergency (ER) | payer MEDICARE, MEDICAID ==
--- NOTE | 2018-08-01 14:34 | ED Physician Documentation ---
PD HPI HEAD INJURY - Stated complaint Stated Complaint: HEAD LAC - History obtained from History obtained from: Patient - History of Present Illness Mechanism of head injury: Fell (tripped and fell last night, striking head. Small lac. No LOC nor concussive symptoms.) Where head injury occurred: Home Timing - onset: Last night Location of injury: Back Associated symptoms: No: LOC, AMS (acting her baseline, per longterm counselor with her.), Nausea / vomiting Symptoms worsen with: Palpation Contributing factors: No: Anticoagulated Similar symptoms before: Has not had sx before Review of Systems Constitutional: denies: Fever, Chills Nose: denies: Rhinorrhea / runny nose, Congestion Throat: denies: Sore throat Respiratory: denies: Cough GI: denies: Nausea, Vomiting Skin: reports: Laceration (s) (back of head) PD PAST MEDICAL HISTORY - Past Medical History Cardiovascular: None Respiratory: None Neuro: Seizure disorder, Other Endocrine/Autoimmune: HyPOthyroidism GI: GERD COMBAT CONTROL: None : None HEENT: None Psych: Other Musculoskeletal: None Derm: None - Past Surgical History Past Surgical History: Yes HEENT: Myringotomy (tubes) - Present Medications Home Medications: Ambulatory Orders Medication Instructions Recorded Confirmed Alprazolam [Xanax] 0.5 mg PO TID PRN 09/08/12 04/07/17 PARoxetine [Paxil] 40 mg PO DAILY 09/08/12 04/07/17 risperiDONE [Risperdal] 3 mg PO QDAC 09/08/12 04/07/17 Divalproex Sodium 1 tab PO TID 03/26/17 04/07/17 Furosemide 20 mg PO DAILY PRN 03/26/17 04/07/17 Levothyroxine Sodium [Synthroid] 112 mcg PO DAILY 03/26/17 04/07/17 Cetirizine HCl 1 tab PO DAILY 04/07/17 04/07/17 Quetiapine Fumarate [Seroquel] 300 mg PO BID 04/07/17 04/07/17 raNITIdine [Zantac] 2 tab PO DAILY 04/07/17 04/07/17 - Allergies Allergies/Adverse Reactions: Allergies Allergy/AdvReac Type Severity Reaction Status Date / Time bee venom protein (honey bee) Allergy Anaphylaxis Verified 08/01/18 14:37 - Social History Does the pt smoke?: No Smoking Status: Never smoker Does the pt drink ETOH?: No Does the pt have substance abuse?: No - Immunizations Immunizations are current?: Yes - POLST Patient has POLST: No PD ED PE NORMAL - Vitals Vital signs reviewed: Yes - General General: No acute distress, Well developed/nourished, Other (alert and interactive with some language and some signing. ) - HEENT HEENT: PERRL, EOMI, Other (back of head with 1.5 cm laceration, no FB and no current bleeding. Locally tender.) - Derm Derm: Normal color, Warm and dry - Neuro Neuro: No motor deficit, No sensory deficit Eye Opening: Spontaneous Motor: Obeys Commands Verbal: Oriented GCS Score: 15 Results - Vitals Vitals: Vital Signs - 24 hr 08/01/18 14:33 Temperature 36.6 C Heart Rate 97 Respiratory 22 Rate O2 Saturation 100 Oxygen O2 Source Room air Procedures - Laceration (location) occipital scalp Length in cm: 1.5 Wound type: Linear, Into subcut fat, Clean Anesthesia: Lidocaine 1% with epi Wound Preparation: Irrigated copiously NS Skin layer closure: [place] Other: Patient tolerated well, No complications, Tetanus UTD Complexity: Simple Departure - Departure Disposition: 01 Home, Self Care Clinical Impression: Accidental fall Qualifiers: Encounter type: initial encounter Qualified Code(s): W19.XXXA - Unspecified fall, initial encounter Occipital scalp laceration Qualifiers: Encounter type: initial encounter Qualified Code(s): S01.01XA - Laceration without foreign body of scalp, initial encounter Condition: Stable Record reviewed to determine appropriate education?: Yes Instructions: ED Laceration Scalp Stitch Or Stap Follow-Up: Susie Rosario DNP [Primary Care Provider] - Comments: It is okay to wash and shower. Clean off the wound twice a day with soap and water, or peroxide and water. Apply some antibiotic ointment to it to keep it moist. Also to watch for signs of infection such as purulence, redness or increasing pain. Return to your primary care or the ER at the specified time for suture removal. Staple removal 7 to 8 days. Discharge Date/Time: 08/01/18 15:15
[2018-08-01] MEDS ORDERED: BACITRACIN OINT TOP ONE (15:18)
== END 2018-08-01 15:15 | disposition home or self-care (01) ==
LOC: ED 14:28
DX: S01.01XA Laceration without foreign body of scalp, initial encounter (principal); W01.10XA Fall on same level from slipping, tripping and stumbling with subsequent striking against unspecified object, initial encounter; Y92.099 Unspecified place in other non-institutional residence as the place of occurrence of the external cause; G40.909 Epilepsy, unspecified, not intractable, without status epilepticus; E03.9 Hypothyroidism, unspecified; K21.9 Gastro-esophageal reflux disease without esophagitis; Z79.899 Other long term (current) drug therapy
CPT/HCPCS: 12001; 99282; 99283; A9270

== ENCOUNTER 2019-02-01 09:14 | Outpatient (CLI) | payer MEDICARE, MEDICAID ==
[2019-02-01 12:41] LABS: BASOPHILS % (AUTO) 0.4 %; EOSINOPHILS % (AUTO) 0.9 %; HGB - HEMOGLOBIN 13.6 g/dL (12.0-16.0); LYMPHOCYTES # (AUTO) 1.2 10^3/uL (1.5-3.5); LYMPHOCYTES % (AUTO) 25.1 %; MEAN CORPUSCULAR HEMOGLOBIN 33.7 pg (27.0-31.0); MEAN CORPUSCULAR HGB CONC 32.2 g/dL (32.0-36.0); MEAN CORPUSCULAR VOLUME 104.7 fL (81.0-99.0); MEAN PLATELET VOLUME 9.1 fL (7.9-10.8); MONOCYTES # (AUTO) 0.4 10^3/uL (0.0-1.0); MONOCYTES % (AUTO) 9.2 %; NEUTROPHILS % (AUTO) 64.2 %; PLT - PLATELET COUNT 138 10^3/uL (130-450); RED BLOOD COUNT 4.03 10^6/uL (4.20-5.40); RED CELL DISTRIBUTION WIDTH 12.9 % (12.0-15.0); WHITE BLOOD COUNT 4.7 x10^3/uL (4.8-10.8)
[2019-02-01 12:49] LABS: ALBUMIN 3.4 g/dL (3.2-5.5); ALKALINE PHOSPHATASE 81 IU/L (42-121); ALT ALANINE AMINOTRANSFERASE 15 IU/L (10-60); AST ASPARTATE AMINOTRANSFERASE 13 IU/L (10-42); BILIRUBIN,TOTAL 0.5 mg/dL (0.2-1.0); BUN - BLOOD UREA NITROGEN 15 mg/dL (6-20); CALCIUM 8.8 mg/dL (8.5-10.3); CARBON DIOXIDE - CO2 31 mmol/L (21-32); CHLORIDE 102 mmol/L (101-111); CHOL/HDL RATIO 3.4 (<4.4); CHOLESTEROL 181 mg/dL; CREATININE 0.7 mg/dL (0.4-1.0); GFR - MDRD 91 (>89); GLUCOSE 89 mg/dL (70-100); HDL CHOLESTEROL 53 mg/dL; LDL CHOLESTEROL,CALCULATED 112 mg/dL; LDL/HDL RATIO 2.1 (<4.4); SODIUM 140 mmol/L (135-145); TOTAL PROTEIN 6.9 g/dL (6.7-8.2); VALPROIC ACID (DEPAKOTE) 87.9 ug/mL; VLDL CHOLESTEROL 16 mg/dL
[2019-02-01 13:04] LABS: HB2 TOTAL 13.9 g/dL; HEMOGLOBIN A1C 0.5 g/dL; HEMOGLOBIN A1C % 5.4 % (4.6-6.2)
== END 2019-02-01 23:59 ==
LOC: LAB.N 09:14
PROVIDERS: ATTEND Nurse Practitioner Gerontology
DX: Z79.899 Other long term (current) drug therapy (principal); E11.9 Type 2 diabetes mellitus without complications; E03.9 Hypothyroidism, unspecified; Z51.81 Encounter for therapeutic drug level monitoring
CPT/HCPCS: 36415; 80053; 80061; 80164; 83036; 83721; 84443; 85025

== ENCOUNTER 2019-05-24 14:21 | Outpatient (CLI) | payer MEDICARE, MEDICAID | END 2019-05-24 14:22 | disposition critical access hospital (66) | LOC: EMS 14:21 | PROVIDERS: ATTEND Surgery | DX: S01.81XA Laceration without foreign body of other part of head, initial encounter (principal); W22.8XXA Striking against or struck by other objects, initial encounter; Y92.009 Unspecified place in unspecified non-institutional (private) residence as the place of occurrence of the external cause | CPT/HCPCS: A0425; A0429 ==

== ENCOUNTER 2019-05-24 14:32 | Emergency (ER) | payer MEDICARE, MEDICAID ==
[2019-05-24] MEDS ORDERED: TETANUS/DIPHTHERIA/PERTUSSIS 0.5 ML SYRINGE IM ONE (14:42)
--- NOTE | 2019-05-24 14:44 | ED Physician Documentation ---
PD HPI HEAD INJURY - Stated complaint Stated Complaint: FALL/HEAD LAC - History obtained from History obtained from: EMS ([age]-year-old woman with developmental delay presents after a head injury with laceration on the left side of her forehead. Tetanus is not immediately known. Reported no loss of consciousness but the patient is unable to give any history due to her developmental delay and being nonverbal.) Review of Systems Unable to obtain: Other (Developmental delay) PD PAST MEDICAL HISTORY - Past Medical History Cardiovascular: None Respiratory: None Neuro: Seizure disorder, Other Endocrine/Autoimmune: HyPOthyroidism GI: GERD VACUUM TRUCK DRIVER: None : None HEENT: None Psych: Other Musculoskeletal: None Derm: None - Past Surgical History Past Surgical History: Yes HEENT: Myringotomy (tubes) - Present Medications Home Medications: Ambulatory Orders Medication Instructions Recorded Confirmed Alprazolam [Xanax] 0.5 mg PO TID PRN 09/08/12 04/07/17 PARoxetine [Paxil] 40 mg PO DAILY 09/08/12 04/07/17 risperiDONE [Risperdal] 3 mg PO QDAC 09/08/12 04/07/17 Divalproex Sodium 1 tab PO TID 03/26/17 04/07/17 Furosemide 20 mg PO DAILY PRN 03/26/17 04/07/17 Levothyroxine Sodium [Synthroid] 112 mcg PO DAILY 03/26/17 04/07/17 Cetirizine HCl 1 tab PO DAILY 04/07/17 04/07/17 Quetiapine Fumarate [Seroquel] 300 mg PO BID 04/07/17 04/07/17 Famotidine 0 mg 05/24/19 - Allergies Allergies/Adverse Reactions: Allergies Allergy/AdvReac Type Severity Reaction Status Date / Time bee venom protein (honey bee) Allergy Anaphylaxis Verified 08/01/18 14:37 - Social History Does the pt smoke?: No Smoking Status: Never smoker Does the pt drink ETOH?: No Does the pt have substance abuse?: No - Immunizations Immunizations are current?: Yes - POLST Patient has POLST: No PD ED PE NORMAL - Vitals Vital signs reviewed: Yes - General General: Other (She is cooperative, nonverbal) - HEENT HEENT: Other (She has unequal pupils, the left is larger than the right, chronic changes and cataracts on both sides.) - Neuro Eye Opening: Spontaneous Motor: Obeys Commands Verbal: Incomprehensible (But this is her baseline) GCS Score: 12 Results - Vitals Vitals: Vital Signs - 24 hr 05/24/19 14:32 Temperature 98.7 C H Heart Rate 98 Respiratory 16 Rate Blood Pressure 128/96 H O2 Saturation 97 Oxygen O2 Source Room air - Rads (name of study) head CT Radiology: EMP read contemporaneously (normal) Procedures - Laceration (location) L forehead Length in cm: 1.5 Wound type: Superficial Wound Preparation: Irrigated copiously NS Skin layer closure: [place] Other: Tetanus booster given Complexity: Simple Departure - Departure Disposition: 01 Home, Self Care Clinical Impression: Facial laceration Qualifiers: Encounter type: initial encounter Qualified Code(s): S01.81XA - Laceration without foreign body of other part of head, initial encounter Head injury Qualifiers: Encounter type: initial encounter Qualified Code(s): S09.90XA - Unspecified injury of head, initial encounter Condition: Good Record reviewed to determine appropriate education?: Yes Instructions: ED Head Injury Closed, ED Laceration Facial Skin Glue
--- NOTE | 2019-05-24 16:00 | CT Report ---
Reason: head inj Procedure Date: 05/24/2019 Accession Number: [id number] / [id number] Procedure: CT - HEAD WO CPT Code: Final Report FULL RESULT: EXAM: CT HEAD EXAM DATE: 05/24/2019 03:26 PM. CLINICAL HISTORY: Head injury. COMPARISON: HEAD W/O 04/07/2017 1:58 PM. TECHNIQUE: Multiaxial CT images were obtained from the foramen magnum to the vertex. Reformats: Sagittal and coronal. IV contrast: None. In accordance with CT protocol optimization, one or more of the following dose reduction techniques were utilized for this exam: automated exposure control, adjustment of mA and/or KV based on patient size, or use of iterative reconstructive technique. FINDINGS: Parenchyma: No intraparenchymal hemorrhage. No evidence of mass, midline shift, or CT findings of infarction. Silva-white differentiation is distinct. Extraaxial Spaces: Normal for age. No subdural or epidural collections identified. Ventricles: Normal in size and position. Sinuses and Orbits: Imaged paranasal sinuses, orbits, and mastoids show no significant abnormality. Bones: No evidence of fracture or calvarial defect. Other: None. IMPRESSION: No acute intracranial CT abnormality. [facility]
[2019-05-24 16:14] VITALS: BP 123/100
== END 2019-05-24 16:14 | disposition home or self-care (01) ==
LOC: EDUNIT# → ED 14:32
DX: S01.81XA Laceration without foreign body of other part of head, initial encounter (principal); S09.90XA Unspecified injury of head, initial encounter; W22.8XXA Striking against or struck by other objects, initial encounter
CPT/HCPCS: 12011; 70450; 90471; 99281; 99284

== ENCOUNTER 2019-07-08 13:48 | Outpatient (CLI) | payer MEDICARE, MEDICAID ==
--- NOTE | 2019-07-09 09:59 | XRAY Report ---
Reason: RT KNEE PAIN Procedure Date: 07/08/2019 Accession Number: [id number] / [id number] Procedure: XR - Knee 3 View RT CPT Code: Final Report FULL RESULT: EXAM: RIGHT KNEE RADIOGRAPHY EXAM DATE: 07/08/2019 02:04 PM. CLINICAL HISTORY: RT KNEE PAIN. COMPARISON: XR KNEE 4 OR MORE VIEWS 05/23/2012 9:15 PM. TECHNIQUE: 3 views. FINDINGS: Bones: Normal. No fractures or bone lesions. Joints: Moderate right knee joint effusion. Mild spurring of the intercondylar notch and lateral compartment. Narrowing of the lateral aspect of patellofemoral joint space. Soft Tissues: Normal. No soft tissue swelling. IMPRESSION: 1. Mild right knee degenerative changes. 2. Right knee joint effusion. [facility]
== END 2019-07-08 13:49 | disposition home or self-care (01) ==
LOC: DI 13:48
PROVIDERS: ATTEND Family Medicine
DX: M17.11 Unilateral primary osteoarthritis, right knee (principal); M25.461 Effusion, right knee

== ENCOUNTER 2019-07-11 19:12 | Outpatient (CLI) | payer MEDICARE, MEDICAID | END 2019-07-11 23:59 | disposition EMS.NT | LOC: EMS 19:12 | PROVIDERS: ATTEND Surgery | DX: Z03.89 Encounter for observation for other suspected diseases and conditions ruled out (principal) ==

== ENCOUNTER 2019-11-09 11:40 | Outpatient (CLI) | payer MEDICARE, MEDICAID | END 2019-11-09 11:41 | disposition EMS.NT | LOC: EMS 11:40 | PROVIDERS: ATTEND Surgery | DX: S00.81XA Abrasion of other part of head, initial encounter (principal); Y04.2XXA Assault by strike against or bumped into by another person, initial encounter; Y92.008 Other place in unspecified non-institutional (private) residence as the place of occurrence of the external cause ==

== ENCOUNTER 2020-01-10 16:14 | Outpatient (CLI) | payer MEDICARE, MEDICAID | END 2020-01-10 16:15 | disposition home or self-care (01) | LOC: COV 16:14 | PROVIDERS: ATTEND Family Medicine | DX: Z20.828 Contact with and (suspected) exposure to other viral communicable diseases (principal) ==

== ENCOUNTER 2020-01-27 17:18 | Outpatient (CLI) | payer MEDICARE, MEDICAID | END 2020-01-27 17:19 | disposition home or self-care (01) | LOC: COV 17:18 | PROVIDERS: ATTEND Family Medicine | DX: Z20.828 Contact with and (suspected) exposure to other viral communicable diseases (principal) ==

== ENCOUNTER 2020-07-15 08:00 | Outpatient (CLI) | payer MEDICARE, MEDICAID ==
[2020-07-15 12:04] LABS: BASOPHILS % (AUTO) 0.5 %; EOSINOPHILS % (AUTO) 0.7 %; HCT - HEMATOCRIT 45.1 % (37.0-47.0); HGB - HEMOGLOBIN 14.4 g/dL (12.0-16.0); LYMPHOCYTES # (AUTO) 1.9 10^3/uL (1.5-3.5); LYMPHOCYTES % (AUTO) 46.1 %; MEAN CORPUSCULAR HEMOGLOBIN 34.6 pg (27.0-31.0); MEAN CORPUSCULAR HGB CONC 31.9 g/dL (32.0-36.0); MEAN CORPUSCULAR VOLUME 108.4 fL (81.0-99.0); MEAN PLATELET VOLUME 9.4 fL (7.9-10.8); MONOCYTES # (AUTO) 0.3 10^3/uL (0.0-1.0); MONOCYTES % (AUTO) 7.2 %; NEUTROPHILS # (AUTO) 1.8 10^3/uL (1.5-6.6); NEUTROPHILS % (AUTO) 45.3 %; PLT - PLATELET COUNT 132 10^3/uL (130-450); RED BLOOD COUNT 4.16 10^6/uL (4.20-5.40); RED CELL DISTRIBUTION WIDTH 13.4 % (12.0-15.0)
[2020-07-15 12:20] LABS: THYROID STIMULATING HORMONE 2.28 uIU/mL (0.34-5.60)
[2020-07-15 12:22] LABS: ALBUMIN 3.8 g/dL (3.2-5.5); ALKALINE PHOSPHATASE 69 IU/L (42-121); ALT ALANINE AMINOTRANSFERASE 19 IU/L (10-60); AST ASPARTATE AMINOTRANSFERASE 16 IU/L (10-42); BILIRUBIN,TOTAL 0.6 mg/dL (0.2-1.0); BUN - BLOOD UREA NITROGEN 19 mg/dL (6-20); CALCIUM 8.5 mg/dL (8.5-10.3); CARBON DIOXIDE - CO2 28 mmol/L (21-32); CHLORIDE 104 mmol/L (101-111); CHOLESTEROL 180 mg/dL; CREATININE 0.9 mg/dL (0.4-1.0); GFR - MDRD 68 (>89); GLUCOSE 77 mg/dL (70-100); HDL CHOLESTEROL 61 mg/dL; LDL CHOLESTEROL,CALCULATED 90 mg/dL; LDL/HDL RATIO 1.5 (<4.4); POTASSIUM 3.9 mmol/L (3.5-5.0); SODIUM 139 mmol/L (135-145); TOTAL PROTEIN 7.5 g/dL (6.7-8.2); TRIGLYCERIDES 144 mg/dL; VALPROIC ACID (DEPAKOTE) 91.1 ug/mL; VLDL CHOLESTEROL 29 mg/dL
[2020-07-15 12:53] LABS: ESTIMATED AVERAGE GLUCOSE 80 mg/dL (70-100); HEMOGLOBIN A1c% 4.4 % (4.27-6.07)
== END 2020-07-15 23:59 | disposition home or self-care (01) ==
LOC: LAB.WCP 08:00
PROVIDERS: ATTEND Family Medicine
DX: Z30.9 Encounter for contraceptive management, unspecified (principal); E11.9 Type 2 diabetes mellitus without complications; G40.909 Epilepsy, unspecified, not intractable, without status epilepticus
CPT/HCPCS: 36415; 80053; 80061; 80164; 83036; 83721; 84443; 84702; 85025

== ENCOUNTER 2020-10-08 09:48 | Outpatient (CLI) | payer MEDICARE, MEDICAID ==
--- NOTE | 2020-10-09 09:50 | XRAY Report ---
PROCEDURE: Knee 4 View RT INDICATIONS: R KNEE PX TECHNIQUE: 4 views of the right knee(s) were acquired. COMPARISON: None. FINDINGS: Bones: No fractures or dislocations. There is moderately severe right knee joint osteoarthritis ove rall, with mild to moderate reduction of the medial and lateral compartment joint with, and also with moderately severe such degeneration at the patellofemoral joint. No suspicious bony lesions. Soft tissues: No joint effusion. No suspicious soft tissue calcifications. IMPRESSION: No trauma but moderately severe degenerative osteoarthritis is present at all 3 compartm ents of the right knee. Reviewed by: Slick Alexander MD on 10/09/2020 9:49 AM PDT Approved by: Slick Alexander MD on 10/09/2020 9:49 AM PDT Station ID: [id number]
== END 2020-10-08 23:59 | disposition home or self-care (01) ==
LOC: DI.N 09:48
PROVIDERS: ATTEND Physician Assistant
DX: M17.11 Unilateral primary osteoarthritis, right knee (principal)

== ENCOUNTER 2020-12-29 18:01 | Emergency (ER) | payer MEDICARE, MEDICAID ==
[2020-12-29 18:14] VITALS: BP 134/96
--- NOTE | 2020-12-29 19:02 | ED Physician Documentation ---
History of Present Illness - Stated complaint Stated Complaint: FALL/R EYE LAC - Chief complaint Chief Complaint: Laceration - History obtained from History obtained from: Patient, Caregiver - History of Present Illness Timing: How many hours ago (6) Pain level max: 0 Pain level now: 0 - Additonal information Additional information: Patient is a 44-year-old female, severe developmental delay, brought in by her caregiver fredo for a cut underneath the right eye. Apparently the patient had become aggressive earlier in the day and fell. This occurred about 6 hours prior to arrival. Nothing makes it better or worse. Tetanus up-to-date. No changes in her mental status. No vomiting. She is not on blood thinners. Review of Systems Constitutional: denies: Fever Respiratory: denies: Cough GI: denies: Abdominal Pain, Vomiting Skin: denies: Rash PD PAST MEDICAL HISTORY - Past Medical History Cardiovascular: None Respiratory: None Neuro: Seizure disorder, Other Endocrine/Autoimmune: HyPOthyroidism GI: GERD VASCULAR SURGERY PHYSICIAN: None : None HEENT: None Psych: Other Musculoskeletal: None Derm: None - Past Surgical History Past Surgical History: Yes HEENT: Myringotomy (tubes) - Present Medications Home Medications: Ambulatory Orders Medication Instructions Recorded Confirmed Alprazolam [Xanax] 0.5 mg PO TID PRN 09/08/12 04/07/17 PARoxetine [Paxil] 40 mg PO DAILY 09/08/12 04/07/17 risperiDONE [Risperdal] 3 mg PO QDAC 09/08/12 04/07/17 Divalproex Sodium 1 tab PO TID 03/26/17 04/07/17 Furosemide 20 mg PO DAILY PRN 03/26/17 04/07/17 Levothyroxine Sodium [Synthroid] 112 mcg PO DAILY 03/26/17 04/07/17 Cetirizine HCl 1 tab PO DAILY 04/07/17 04/07/17 Quetiapine Fumarate [Seroquel] 300 mg PO BID 04/07/17 04/07/17 Famotidine 0 mg 05/24/19 - Allergies Allergies/Adverse Reactions: Allergies Allergy/AdvReac Type Severity Reaction Status Date / Time bee venom protein (honey bee) Allergy Anaphylaxis Verified 12/29/20 18:05 - Social History Does the pt smoke?: No Smoking Status: Never smoker Does the pt drink ETOH?: No Does the pt have substance abuse?: No - Immunizations Immunizations are current?: Yes - POLST Patient has POLST: No PD ED PE NORMAL - Vitals Vital signs reviewed: Yes - General General: No acute distress, Well developed/nourished, Other (Alert, at her normal mental baseline.) - HEENT HEENT: Atraumatic (No scalp hematomas or palpable skull fractures), PERRL, EOMI, Moist mucous membranes, Other (Mild periorbital ecchymosis to the right eye. No tenderness. Small abrasion to the lower eyelid. No hyphema. Normal pupils.) - Neck Neck: Supple, no meningeal sign, No bony TTP - Cardiac Cardiac: RRR - Respiratory Respiratory: No respiratory distress, Clear bilaterally - Abdomen Abdomen: Soft, Non tender, Non distended - Back Back: No spinal TTP - Derm Derm: Warm and dry - Extremities Extremities: Normal ROM s pain - Neuro Neuro: Other (Alert, at her normal mental baseline. Nonverbal) Results - Vitals Vitals: Vital Signs - 24 hr 12/29/20 18:05 Temperature 36 C L Heart Rate 92 Respiratory 20 Rate Blood Pressure 134/96 H O2 Saturation 94 Oxygen O2 Source Room air PD MEDICAL DECISION MAKING - ED course Complexity details: considered differential ED course: Patient with a small abrasion under the right eye. This was cleansed and bandaged. No indication for sutures. Small amount of periorbital ecchymosis. No tenderness. No evidence of extraocular muscle entrapment. No evidence of fracture. We will hold head CT and maxillofacial CT at this time. Caregiver will have the patient follow-up with her PCP. This document was made in part using voice recognition software. While efforts are made to proofread this document, sound alike and grammatical errors may occur. Departure - Departure Disposition: 01 Home, Self Care Clinical Impression: Abrasion Periorbital contusion of right eye Qualifiers: Encounter type: initial encounter Qualified Code(s): S05.11XA - Contusion of eyeball and orbital tissues, right eye, initial encounter Condition: Good Instructions: ED Abrasion Follow-Up: Clinton Mosqueda DO [Primary Care Provider] - Within 1 week Comments: Please return if she worsens. Keep the wound clean. It does not need sutures tonight. Her tetanus shot is up-to-date. Return if you notice redness, swelling or drainage from the wound. The bruising will likely worsen tomorrow and the next day. Return if she develops altered mental status, repeated vomiting or other new or worrisome symptoms. Discharge Date/Time: 12/29/20 19:09
== END 2020-12-29 19:09 | disposition home or self-care (01) ==
LOC: ED 18:01
DX: S00.211A Abrasion of right eyelid and periocular area, initial encounter (principal); S05.11XA Contusion of eyeball and orbital tissues, right eye, initial encounter; W18.30XA Fall on same level, unspecified, initial encounter
CPT/HCPCS: 99281; 99282

== ENCOUNTER 2021-03-31 11:16 | Emergency (ER) | payer MEDICARE, MEDICAID ==
[2021-03-31 11:28] VITALS: BP 150/106
--- NOTE | 2021-03-31 11:41 | ED Physician Documentation ---
History of Present Illness - Stated complaint Stated Complaint: SWELLING HANDS/ARM/LEGS - Chief complaint Chief Complaint: General - Additonal information Additional information: 45-year-old female who has a history of severe developmental delay/autism is brought into the emergency department by her caregiver for evaluation of swelling in her upper extremities. Patient's caregiver reports that over the last 2 days he has noted swelling in her hands and feels that she is more short of breath with ambulation. No recent cough, fevers, she has no swelling of her lower extremities. She does take Lasix 20 mg twice daily and has not missed any doses. Caregiver is unclear for the reason for the diuretic at baseline. Review of Systems Unable to obtain: Other (Developmental delay/autism. History obtained from caregiver) Constitutional: denies: Fever, Chills Eyes: reports: Reviewed and negative Nose: reports: Reviewed and negative Throat: reports: Reviewed and negative Cardiac: reports: Reviewed and negative Respiratory: reports: Reviewed and negative GI: reports: Reviewed and negative : reports: Reviewed and negative Skin: reports: Reviewed and negative Musculoskeletal: reports: Reviewed and negative Neurologic: reports: Other (Developmental delay) PD PAST MEDICAL HISTORY - Past Medical History Cardiovascular: None Respiratory: None Neuro: Seizure disorder, Other Endocrine/Autoimmune: HyPOthyroidism GI: GERD PODIATRIC MEDICINE PROFESSOR: None : None HEENT: None Psych: Other Musculoskeletal: None Derm: None - Past Surgical History Past Surgical History: Yes HEENT: Myringotomy (tubes) - Present Medications Home Medications: Ambulatory Orders Medication Instructions Recorded Confirmed Alprazolam [Xanax] 0.5 mg PO TID PRN 09/08/12 03/31/21 PARoxetine [Paxil] 40 mg PO DAILY 09/08/12 03/31/21 risperiDONE [Risperdal] 1.5 mg PO QDAC 09/08/12 03/31/21 Divalproex Sodium 1 tab PO TID 03/26/17 03/31/21 Furosemide 20 mg PO DAILY PRN 03/26/17 03/31/21 Levothyroxine Sodium [Synthroid] 112 mcg PO DAILY 03/26/17 03/31/21 Cetirizine HCl 1 tab PO DAILY 04/07/17 03/31/21 Quetiapine Fumarate [Seroquel] 300 mg PO BID 04/07/17 03/31/21 EPINEPHrine [Epinephrine] 0.3 mg IM ONCE PRN 03/31/21 03/31/21 QUEtiapine [SEROquel] 400 mg PO HS 03/31/21 03/31/21 - Allergies Allergies/Adverse Reactions: Allergies Allergy/AdvReac Type Severity Reaction Status Date / Time bee venom protein (honey bee) Allergy Anaphylaxis Verified 03/31/21 11:28 - Social History Does the pt smoke?: No Smoking Status: Never smoker Does the pt drink ETOH?: No Does the pt have substance abuse?: No - Immunizations Immunizations are current?: Yes - POLST Patient has POLST: No PD ED PE EXPANDED - General General: Alert, No acute distress, Well developed/nourished - Cardiac Cardiac: Regular Rate, Radial strong equal, Pedal strong equal, Cap refill < 2 sec. No: Murmur Present - Respiratory Respiratory: Clear to ausultation marilyn. No: Distress, Labored - Abdomen Abdomen: Normal Bowel sounds. No: Tender to palpation - Back Back: Normal exam. No: Vertebral tenderness, Soft tissue tenderness - Derm Derm: Normal color, Warm and dry - Extremities Extremities: Normal, Deformity, Pedal Pulses Present, Other (Mild nonpitting edema noted to bilateral hands. No swelling of the forearms or arms. 2+ radial pulse. Brisk cap refill.). No: Pedal edema bilateral, Right calf TTP/cord, Left calf TTP/cord - Neuro Neuro: CNII-XII intact, Other (developmental delay; poor speech patterns) Results - Vitals Vitals: Vital Signs - 24 hr 03/31/21 11:25 Temperature 36.2 C L Heart Rate 84 Respiratory 20 Rate Blood Pressure 150/106 H O2 Saturation 98 Oxygen O2 Source Room air - Labs Labs: Laboratory Tests 03/31/21 03/31/21 03/31/21 11:45 11:45 11:45 WBC 5.5 RBC 3.42 L Hgb 11.5 L Hct 35.3 L MCV 103.2 H MCH 33.6 H MCHC 32.6 RDW 13.4 Plt Count 136 MPV 8.1 Neut # (Auto) 3.3 Lymph # (Auto) 1.6 [place] # (Auto) 0.5 Eos # (Auto) 0.1 Baso # (Auto) 0.0 Absolute Nucleated RBC 0.00 Nucleated RBC % 0.0 Sodium 132 L Potassium 4.1 Chloride 94 L Carbon Dioxide 30 Anion Gap 8.0 BUN 11 Creatinine 0.7 Estimated GFR (MDRD) 90 Glucose 91 Calcium 8.7 Total Bilirubin 0.3 AST 11 ALT 12 Alkaline Phosphatase 55 Troponin I High Sens 2.8 B-Natriuretic Peptide Total Protein 6.7 Albumin 2.9 L Globulin 3.8 Albumin/Globulin Ratio 0.8 L Lipase 38 03/31/21 11:45 WBC RBC Hgb Hct MCV MCH MCHC RDW Plt Count MPV Neut # (Auto) Lymph # (Auto) [place] # (Auto) Eos # (Auto) Baso # (Auto) Absolute Nucleated RBC Nucleated RBC % Sodium Potassium Chloride Carbon Dioxide Anion Gap BUN Creatinine Estimated GFR (MDRD) Glucose Calcium Total Bilirubin AST ALT Alkaline Phosphatase Troponin I High Sens B-Natriuretic Peptide 79 Total Protein Albumin Globulin Albumin/Globulin Ratio Lipase - Rads (name of study) CXR Radiology: Final report received (Cardiomegaly, pulmonary vascular congestion and mild pulmonary edema. No definite focal infiltrate. No significant pleural effusion or gross pneumothorax) PD MEDICAL DECISION MAKING - ED course Complexity details: reviewed old records, reviewed results, re-evaluated patient, d/w patient, d/w family (Caregiver) ED course: 45-year-old female presents emergency department with her caregiver for evaluation of swelling of her bilateral upper extremities for about 2 days. Given significant developmental delay/autism history is obtained by her caregiver. No recent illness, no nausea vomiting fevers chest pain or cough. She has not missed any of her usual doses of medication which also include Lasix 20 mg twice daily. On exam the patient appears rather well. Room air saturations are 98% without tachypnea. Cardiopulmonary auscultation is also fairly clear no murmur was appreciated. EKG is nonischemic. Screening labs show no BNP elevation. Troponin is negative. However the chest x-ray suggests cardiomegaly with pulmonary edema. I suspect that she is developing some early heart failure. Does not meet indications for hospitalizations given no hypoxia. Patient was given an extra dose of Lasix here in the ER and will be advised 40 mg daily for 3 days then resume 20 mg twice daily. I discussed with the caregiver the patient should follow-up closely with primary care provider Dr. Mosqueda outpatient testing with echocardiogram is recommended. Emergent return precautions were discussed for concerns of worsening symptoms, hypoxia or severe shortness of air. Departure - Departure Disposition: 01 Home, Self Care Clinical Impression: Bilateral hand swelling Pulmonary edema Qualifiers: Chronicity: acute Qualified Code(s): J81.0 - Acute pulmonary edema Condition: Stable Record reviewed to determine appropriate education?: Yes Instructions: Edema Pulmonary Follow-Up: Clinton Mosqueda DO [Primary Care Provider] - Comments: Toma was seen in the emergency department today for swelling in her upper extremities as well as some worsening shortness of air. Today her vital signs show a normal oxygen level on room air and her heart and lungs sound relatively clear. Her screening labs today do not show any worrisome findings however her chest x- ray suggest that she is developing pulmonary edema and perhaps some mildly enlarged heart. As we discussed at the bedside I suspect that she is developing some congestive heart failure. This ED visit needs to be discussed with Dr. Mosqueda very closely. She would benefit from outpatient echocardiogram and referral to cardiology. For the next 3 days I recommend that you give her 40 mg or 2 tablets of Lasix (Furosemide) twice daily then resume giving it to her as previously scheduled (20 mg twice daily.) These extra doses of Lasix should make her pee more and help reduce the pulmonary edema and thus the swelling in her hands. Her labs should be redrawn in about 1 week to make sure that her potassium levels are normal (they are normal today, but potassium can decrease with extra lasix doses) If despite the extra doses of Lasix she is developing worsening symptoms, having severe respiratory distress, has discolored or blue lips and tongue then she is to return immediately to the ER for a second evaluation.
[2021-03-31 11:49] LABS: BASOPHILS % (AUTO) 0.5 %; EOSINOPHILS # (AUTO) 0.1 10^3/uL (0.0-0.7); EOSINOPHILS % (AUTO) 1.6 %; HCT - HEMATOCRIT 35.3 % (37.0-47.0); HGB - HEMOGLOBIN 11.5 g/dL (12.0-16.0); LYMPHOCYTES # (AUTO) 1.6 10^3/uL (1.5-3.5); LYMPHOCYTES % (AUTO) 28.7 %; MEAN CORPUSCULAR HEMOGLOBIN 33.6 pg (27.0-31.0); MEAN CORPUSCULAR HGB CONC 32.6 g/dL (32.0-36.0); MEAN CORPUSCULAR VOLUME 103.2 fL (81.0-99.0); MEAN PLATELET VOLUME 8.1 fL (7.9-10.8); MONOCYTES # (AUTO) 0.5 10^3/uL (0.0-1.0); MONOCYTES % (AUTO) 9.1 %; NEUTROPHILS # (AUTO) 3.3 10^3/uL (1.5-6.6); NEUTROPHILS % (AUTO) 59.7 %; PLT - PLATELET COUNT 136 10^3/uL (130-450); RED BLOOD COUNT 3.42 10^6/uL (4.20-5.40); RED CELL DISTRIBUTION WIDTH 13.4 % (12.0-15.0); WHITE BLOOD COUNT 5.5 x10^3/uL (4.8-10.8)
--- NOTE | 2021-03-31 12:20 | XRAY Report ---
PROCEDURE: Chest 1 View X-Ray INDICATIONS: hand and feet swelling TECHNIQUE: One view of the chest was acquired. COMPARISON: 09/14/2016 FINDINGS: Surgical changes and devices: None. Lungs and pleura: No pleural effusions or pneumothorax. Interstitial reticulonodular prominence is s een throughout bilateral lung clarke concerning for pulmonary edema. Mild pulmonary vascular congesti on is also seen. No definite focal infiltrate. Mediastinum: Mediastinal contours appear normal. Heart size is enlarged Bones and chest wall: No suspicious bony lesions. Overlying soft tissues appear unremarkable. IMPRESSION: Cardiomegaly, pulmonary vascular congestion and mild pulmonary edema. No definite focal infiltrate. N o significant pleural effusion or gross pneumothorax. Reviewed by: Luis Enrique Lam MD on 03/31/2021 12:19 PM PST Approved by: Luis Enrique Lam MD on 03/31/2021 12:19 PM PST Station ID: [id number]
[2021-03-31] MEDS ORDERED: FUROSEMIDE 20 MG TABLET PO STA (12:24)
[2021-03-31 12:25] LABS: ALBUMIN 2.9 g/dL (3.2-5.5); ALBUMIN/GLOBULIN RATIO 0.8 (1.0-2.2); BILIRUBIN,TOTAL 0.3 mg/dL (0.2-1.0); CALCIUM 8.7 mg/dL (8.5-10.3); CREATININE 0.7 mg/dL (0.4-1.0); POTASSIUM 4.1 mmol/L (3.5-5.0); TOTAL PROTEIN 6.7 g/dL (6.7-8.2)
== END 2021-03-31 12:56 | disposition home or self-care (01) ==
LOC: ED 11:16
DX: J81.0 Acute pulmonary edema (principal)
CPT/HCPCS: 36415; 71045; 80053; 83690; 83880; 84484; 85025; 93005; 99282; 99284; A9270

== ENCOUNTER 2021-05-10 08:25 | Outpatient (CLI) | payer MEDICARE, MEDICAID | END 2021-05-10 08:26 | disposition critical access hospital (66) | LOC: EMS 08:25 | DX: R55 Syncope and collapse (principal) | CPT/HCPCS: A0425; A0429 ==

== ENCOUNTER 2021-05-10 08:38 | Emergency (ER) | payer MEDICARE, MEDICAID ==
[2021-05-10 09:17] LABS: BASOPHILS % (AUTO) 0.4 %; EOSINOPHILS # (AUTO) 0.1 10^3/uL (0.0-0.7); EOSINOPHILS % (AUTO) 1.3 %; HCT - HEMATOCRIT 39.5 % (37.0-47.0); LYMPHOCYTES % (AUTO) 22.8 %; MEAN CORPUSCULAR HEMOGLOBIN 33.5 pg (27.0-31.0); MEAN CORPUSCULAR HGB CONC 32.9 g/dL (32.0-36.0); MEAN CORPUSCULAR VOLUME 101.8 fL (81.0-99.0); MEAN PLATELET VOLUME 8.5 fL (7.9-10.8); MONOCYTES # (AUTO) 0.4 10^3/uL (0.0-1.0); MONOCYTES % (AUTO) 9.1 %; NEUTROPHILS % (AUTO) 66.2 %; PLT - PLATELET COUNT 121 10^3/uL (130-450); RED BLOOD COUNT 3.88 10^6/uL (4.20-5.40); RED CELL DISTRIBUTION WIDTH 13.7 % (12.0-15.0); WHITE BLOOD COUNT 4.5 x10^3/uL (4.8-10.8)
--- NOTE | 2021-05-10 09:29 | ED Physician Documentation ---
PD HPI SYNCOPE - Stated complaint Stated Complaint: SEIZURE - Chief complaint Chief Complaint: Neuro - History obtained from History obtained from: Patient, EMS, Caregiver - History of Present Illness Witnessed: Witnessed Timing - onset: How many hours ago (1/2), Today Duration: Seconds Preceding symptoms: Dyspnea, Other (patient was at dining table with others, usual routine, and caregiver noted patient to sort of cough/reach toward her/ and then eyes rolled back and she slumped to floor. No forceful impact. Awoke within 5 seconds or so. No seizure movements. patient purposeful interaction upon awakening.). No: Headache, Nausea / vomiting Associated symptoms: No: Seizure, Incontinant of urine, Headache, Chest pain, Nausea / vomiting Contributing factors: No: Recent med change, Decreased PO intake Injury occurred: No: Head injury Similar symptoms before: Has not had sx before Review of Systems Unable to obtain: Other (autism and minimally verbal, but does sign/gesture for communication. Caregiver assisting.) Constitutional: denies: Fever, Chills Nose: denies: Rhinorrhea / runny nose, Congestion Respiratory: denies: Cough GI: denies: Vomiting, Diarrhea : denies: Incontinent Musculoskeletal: reports: Extremity swelling (waxing and waning leg swelling over past few months.) Neurologic: denies: Focal weakness PD PAST MEDICAL HISTORY - Past Medical History Cardiovascular: None, Congestive heart failure (possible) Respiratory: None Neuro: Seizure disorder, Other (autism) Endocrine/Autoimmune: HyPOthyroidism GI: GERD PITCH WORKER: None : None HEENT: None Psych: Other Musculoskeletal: None Derm: None - Past Surgical History Past Surgical History: Yes HEENT: Myringotomy (tubes) - Present Medications Home Medications: Ambulatory Orders Medication Instructions Recorded Confirmed Alprazolam [Xanax] 0.5 mg PO TID PRN 09/08/12 05/10/21 PARoxetine [Paxil] 60 mg PO DAILY 09/08/12 05/10/21 risperiDONE [Risperdal] 1.5 mg PO QDAC 09/08/12 05/10/21 Divalproex Sodium 1 tab PO TID 03/26/17 05/10/21 Furosemide 20 mg PO BID 03/26/17 05/10/21 Levothyroxine Sodium [Synthroid] 112 mcg PO DAILY 03/26/17 05/10/21 Cetirizine HCl 1 tab PO DAILY 04/07/17 05/10/21 Quetiapine Fumarate [Seroquel] 300 mg PO BID 04/07/17 05/10/21 EPINEPHrine [Epinephrine] 0.3 mg IM ONCE PRN 03/31/21 05/10/21 QUEtiapine [SEROquel] 400 mg PO HS 03/31/21 05/10/21 Cholecalciferol [Vitamin D3] 25 mcg PO DAILY 05/10/21 05/10/21 - Allergies Allergies/Adverse Reactions: Allergies Allergy/AdvReac Type Severity Reaction Status Date / Time bee venom protein (honey bee) Allergy Anaphylaxis Verified 05/10/21 08:48 - Social History Does the pt smoke?: No Smoking Status: Never smoker Does the pt drink ETOH?: No Does the pt have substance abuse?: No - Immunizations Immunizations are current?: Yes - POLST Patient has POLST: No PD ED PE NORMAL - Vitals Vital signs reviewed: Yes - General General: No acute distress, Well developed/nourished, Other (using hand signs and nods mostly, she communicates with caregiver and myself. ) - HEENT HEENT: Atraumatic - Neck Neck: Supple, no meningeal sign, No adenopathy - Cardiac Cardiac: RRR (mild tachycardic initially. ), No murmur - Respiratory Respiratory: Clear bilaterally - Abdomen Abdomen: Soft, Non tender - Back Back: No CVA TTP - Derm Derm: Normal color, Warm and dry - Extremities Extremities: No tenderness to palpate, Normal ROM s pain, No edema, No calf tenderness / cord - Neuro Neuro: No motor deficit, Other (hard to assess orientation due to speech deficit. ). No: Normal speech (minimally verbal c/w autism) Eye Opening: Spontaneous Motor: Obeys Commands - Psych Psych: Normal affect Results - Vitals Vitals: Vital Signs - 24 hr 05/10/21 05/10/21 08:48 09:48 Temperature 36.1 C L Heart Rate 106 H 86 Respiratory 20 17 Rate Blood Pressure 91/75 117/72 O2 Saturation 94 95 Oxygen O2 Source Room air - EKG (time done) 08:59 Rate: Rate (enter#) (92) Rhythm: NSR [place]: Normal Intervals: Wide QRS (LAFB) QRS: Normal Ischemia: Normal ST segments. No: ST elevation c/w ischemia, ST depression - Labs Labs: Laboratory Tests 05/10/21 05/10/21 05/10/21 09:11 09:11 09:11 WBC 4.5 L RBC 3.88 L Hgb 13.0 Hct 39.5 MCV 101.8 H MCH 33.5 H MCHC 32.9 RDW 13.7 Plt Count 121 L MPV 8.5 Neut # (Auto) 3.0 Lymph # (Auto) 1.0 L [place] # (Auto) 0.4 Eos # (Auto) 0.1 Baso # (Auto) 0.0 Absolute Nucleated RBC 0.00 Nucleated RBC % 0.0 Sodium 137 Potassium 3.9 Chloride 97 L Carbon Dioxide 27 Anion Gap 13.0 BUN 17 Creatinine 0.9 Estimated GFR (MDRD) 67 L Glucose 107 H Calcium 8.9 Magnesium 2.2 Total Bilirubin 0.4 AST 15 ALT 15 Alkaline Phosphatase 65 Troponin I High Sens 2.8 B-Natriuretic Peptide Total Protein 7.8 Albumin 3.9 Globulin 3.9 Albumin/Globulin Ratio 1.0 Lipase 44 Urine Color Urine Clarity Urine pH Ur Specific [place] Urine Protein Urine Glucose (UA) Urine Ketones Urine Occult Blood Urine Nitrite Urine Bilirubin Urine Urobilinogen Ur Leukocyte Esterase Urine RBC Urine WBC Ur Squamous Epith Cells Urine Bacteria Ur Microscopic Review Urine Culture Comments Last Dose Date Last Dose Time Valproic Acid 05/10/21 05/10/21 05/10/21 09:11 09:11 10:00 WBC RBC Hgb Hct MCV MCH MCHC RDW Plt Count MPV Neut # (Auto) Lymph # (Auto) [place] # (Auto) Eos # (Auto) Baso # (Auto) Absolute Nucleated RBC Nucleated RBC % Sodium Potassium Chloride Carbon Dioxide Anion Gap BUN Creatinine Estimated GFR (MDRD) Glucose Calcium Magnesium Total Bilirubin AST ALT Alkaline Phosphatase Troponin I High Sens B-Natriuretic Peptide 31 Total Protein Albumin Globulin Albumin/Globulin Ratio Lipase Urine Color LIGHT YELLOW Urine Clarity HAZY Urine pH 7.5 Ur Specific [place] 1.015 Urine Protein NEGATIVE Urine Glucose (UA) NEGATIVE Urine Ketones NEGATIVE Urine Occult Blood TRACE-INTA Urine Nitrite NEGATIVE Urine Bilirubin NEGATIVE Urine Urobilinogen 0.2 (NORMAL) Ur Leukocyte Esterase LARGE H Urine RBC 0-5 Urine WBC 0-3 Ur Squamous Epith Cells MANY Squamous H Urine Bacteria Moderate H Ur Microscopic Review INDICATED Urine Culture Comments NOT INDICATED Last Dose Date UNK Last Dose Time UNK Valproic Acid 83.8 - Rads (name of study) chest xray Radiology: Prelim report reviewed (overall impression of vascular congestion c/w edema. Trace left effusion. ), See rad report PD MEDICAL DECISION MAKING - ED course Complexity details: reviewed results, re-evaluated patient (she still seems to be acting normal for patient, according to her caregiver. ), considered differential Departure - Departure Disposition: 01 Home, Self Care Clinical Impression: Episode of syncope Qualifiers: Syncope type: unspecified Qualified Code(s): R55 - Syncope and collapse Condition: Stable Instructions: ED Fainting Unkn Cause Comments: Unclear the cause of the episode. Your basic blood tests and EKG appear normal here. No signs of obvious infection nor heart injury. Blood pressure and heart rhythm are good. Your chest x-ray shows some mild vascular congestion but other markers do not really show signs of heart failure per se. I would just continue with your current medications including your current diuretic. Follow-up with your primary care as in the near future. Recheck or return if repeated fainting episodes. Discharge Date/Time: 05/10/21 11:00
[2021-05-10 09:34] LABS: ALBUMIN 3.9 g/dL (3.2-5.5); BILIRUBIN,TOTAL 0.4 mg/dL (0.2-1.0); CALCIUM 8.9 mg/dL (8.5-10.3); CREATININE 0.9 mg/dL (0.4-1.0); MAGNESIUM 2.2 mg/dL (1.7-2.8); POTASSIUM 3.9 mmol/L (3.5-5.0); TOTAL PROTEIN 7.8 g/dL (6.7-8.2)
[2021-05-10 09:36] LABS: VALPROIC ACID (DEPAKOTE) 83.8 ug/mL
--- NOTE | 2021-05-10 09:37 | XRAY Report ---
PROCEDURE: Chest 1 View X-Ray INDICATIONS: syncope TECHNIQUE: One view of the chest was acquired. COMPARISON: Chest x-ray 03/31/2021 FINDINGS: Surgical changes and devices: None. Lungs and pleura: Mild appearance of increased vascularity. There is blunting of the left costophreni c angle. Mediastinum: Mediastinal contours appear normal. Heart size is enlarged. Bones and chest wall: No suspicious bony lesions. Overlying soft tissues appear unremarkable. IMPRESSION: Overall appearance of increased vascularity suggestive of edema. Likely trace left effusion. Reviewed by: Stacie Kolb MD on 05/10/2021 9:36 AM PDT Approved by: Stacie Kolb MD on 05/10/2021 9:36 AM PDT Station ID: [id number]
[2021-05-10 09:48] VITALS: BP 117/72
[2021-05-10 10:03] LABS: BILIRUBIN,URINE NEGATIVE (NEGATIVE); GLUCOSE, URINE (UA) NEGATIVE (NEGATIVE); KETONES,URINE (UA) NEGATIVE (NEGATIVE); LEUKOCYTE ESTERASE, URINE LARGE (NEGATIVE); NITRITE,URINE NEGATIVE (NEGATIVE); OCCULT BLOOD,URINE TRACE-INTA (NEGATIVE); PH,URINE 7.5 PH (5.0-7.5); PROTEIN,URINE NEGATIVE (NEGATIVE); UROBILINOGEN,URINE 0.2 (NORMAL) E.U./dL (NORMAL)
[2021-05-10 10:04] LABS: CLARITY,URINE HAZY (CLEAR)
[2021-05-10 10:10] LABS: RBC,URINE 0-5 /HPF (0-5); SQUAMOUS EPITHELIAL CELL,UR MANY Squamous (<= Few); WBC,URINE 0-3 /HPF (0-5)
[2021-05-10 10:11] LABS: BACTERIA,URINE Moderate /HPF (None Seen)
== END 2021-05-10 11:00 | disposition home or self-care (01) ==
LOC: EDUNIT# → ED 08:38
DX: R55 Syncope and collapse (principal)
CPT/HCPCS: 36415; 80053; 80164; 81001; 81003; 83690; 83735; 83880; 84484; 85025; 87086; 93005; 99283; 99284

== ENCOUNTER 2021-06-13 07:27 | Outpatient (CLI) | payer MEDICARE, MEDICAID | END 2021-06-13 07:28 | disposition E | LOC: EMS 07:27 ==